=== PATIENT | female | born 1960 | race American Indian/Alaskan Native ===

== ENCOUNTER 2017-08-02 18:07 | Inpatient (IN) | payer OTHER ==
[2017-08-02] MEDS ORDERED: Famotidine 20mg/50ml Premix IVPB STA (18:58)
[2017-08-02 19:12] LABS: PH,URINE 6.5 (4.7-8.0); URINE BILIRUBIN NEGATIVE (NEGATIVE); URINE BLOOD MODERATE (NEGATIVE); URINE GLUCOSE (UA) >=1000 mg/dL (NEGATIVE); URINE LEUKOCYTE ESTERASE NEGATIVE Leu/uL (NEGATIVE); URINE PROTEIN 30 mg/dL (<30 mg/dL); URINE UROBILINOGEN 0.2 E.U./dL (<1 E.U./dL)
[2017-08-02 19:33] LABS: URINE APPEARANCE CLEAR (CLEAR)
[2017-08-02 19:43] LABS: URINE BACTERIA TRACE (NEG); URINE RBC 25 - 30 /hpf (0-2)
[2017-08-02 19:49] LABS: BASO # 0.02 K/mm3 (0.0-2.0); BASO % 0.3 % (0.0-3.0); EOS % 0.1 % (1.5-5.0); GRAN # 4.62 (1.4-6.5); HEMOGLOBIN 14.3 g/dL (12.0-16.0); LYMPH # 2.6 (1.2-3.4); LYMPH % 33.3 % (22.0-35.0); MEAN CELL VOLUME 89.2 fl (80.0-105.0); MEAN CORPUSCULAR HEMOGLOBIN 31.5 pg (25.0-35.0); MEAN CORPUSCULAR HGB CONC 35.3 g/dl (31.0-37.0); MEAN PLATELET VOLUME 11.2 fl (7.0-11.0); MONO # 0.6 (0.1-0.6); MONO % 7.3 % (1.0-6.0); RBC 4.54 10^6/uL (3.5-6.1); RED CELL DISTRIBUTION WIDTH 12.9 % (11.5-14.5); WHITE BLOOD COUNT 7.8 10^3/ul (4.5-11.0)
[2017-08-02] MEDS ORDERED: Sodium Chloride 0.9% 1,000 ML IV STA ×2 (19:52→20:46)
[2017-08-02 20:09] LABS: TROPONIN I 0.07 ng/mL
[2017-08-02 20:31] LABS: ALB/GLOB RATIO 0.8 (1.1-1.8); ALBUMIN 4.8 g/dL (3.0-4.8); ALT/SGPT 54 U/L (7-56); AMYLASE 95 U/L (35-125); AST/SGOT 71 U/L (14-36); BLOOD UREA NITROGEN 27 mg/dL (7-21); CALCIUM 10.9 mg/dL (8.4-10.5); GFR AFRICAN-AMERICAN > 60; GFR NON-AFRICAN AMERICAN 51; LIPASE 162 U/L (23-300)
[2017-08-02] MEDS ORDERED: Insulin Regular 1 UNITS/0.01 ML ML IVP STA (20:37)
[2017-08-02 20:39] LABS: CK MB% 5.1 % (2.5-3.0); CK-MB 19.7 ng/mL (0.0-3.6)
--- NOTE | 2017-08-02 20:52 | ED PDOC ---
Arrival/HPI - General Chief Complaint: Flu-like Symptoms Time Seen by Provider: 08/02/17 18:29 Historian: Patient - History of Present Illness Narrative History of Present Illness (Text): 08/02/17 20:49 56yo female with PMHx of hypertension who present with 11days history of generalized bodyache, decreased appetite, sharp abdominal pain, polydipsia/ uria. States she saw her PMD but nothing was done. She denies nausea, vomiting, diarrhea, constipation, fever, chills, chest pain, SOB, diaphoresis, focal weakness, any other complaint. Past Medical History - Provider Review Nursing Documentation Reviewed: Yes - Infectious Disease Hx of Infectious Diseases: None - Reproductive Menopause: Yes - Cardiac Hx Hypertension: Yes - Pulmonary Hx Asthma: Yes - Musculoskeletal/Rheumatological Other/Comment: chronic neck pain - Psychiatric Hx Anxiety: Yes Hx Depression: Yes Hx Substance Use: No Family/Social History - Physician Review Nursing Documentation Reviewed: Yes Family/Social History: Unknown Family HX Smoking Status: Current Some Days Smoker Hx Alcohol Use: No Hx Substance Use: No Allergies/Home Meds Allergies/Adverse Reactions: Allergies No Known Allergies Allergy (Verified 08/02/17 18:57) Review of Systems - Physician Review All systems were reviewed & negative as marked: Yes - Review of Systems Constitutional: Fatigue Eyes: Normal ENT: Normal Respiratory: Normal Cardiovascular: Normal Gastrointestinal: Abdominal Pain, Appetite Changes (decreased appetite). absent : Constipation, Diarrhea, Nausea, Vomiting Genitourinary Female: Normal Musculoskeletal: Normal Skin: Normal Neurological: Normal Endocrine: Normal Hemo/Lymphatic: Normal Psychiatric: Normal Physical Exam Vital Signs Reviewed: Yes Vital Signs Temp Pulse Resp BP Pulse Ox 08/03/17 00:56 98.2 F 82 18 173/98 H 08/02/17 23:43 98.1 F 85 18 123/69 100 08/02/17 21:02 98.1 F 92 H 18 194/86 H 96 08/02/17 18:08 98.6 F 113 H 18 163/101 H 96 Temperature: Afebrile Blood Pressure: Hypertensive Pulse: Tachycardic Respiratory Rate: Normal Appearance: Positive for: Well-Appearing, Non-Toxic, Comfortable Pain Distress: None Mental Status: Positive for: Alert and Oriented X 3 - Systems Exam Head: Present: Atraumatic, Normocephalic Pupils: Present: PERRL Extroacular Muscles: Present: EOMI Conjunctiva: Present: Normal Mouth: Present: Moist Mucous Membranes Neck: Present: Normal Range of Motion Respiratory/Chest: Present: Clear to Auscultation, Good Air Exchange. No: Respiratory Distress, Accessory Muscle Use Cardiovascular: Present: Regular Rate and Rhythm, Normal S1, S2. No: Murmurs Abdomen: Present: Tenderness (diffuse), Other (Soft). No: Distention, Peritoneal Signs, Rebound, Guarding, McBurney's Point Tender, Rovsing's Sign Present Back: Present: Normal Inspection Upper Extremity: Present: Normal Inspection. No: Cyanosis, Edema Lower Extremity: Present: Normal Inspection. No: Edema Neurological: Present: GCS=15, CN II-XII Intact, Speech Normal Skin: Present: Warm, Dry, Normal Color. No: Rashes Psychiatric: Present: Alert, Oriented x 3, Normal Insight, Normal Concentration Medical Decision Making ED Course and Treatment: 08/03/17 01:20 Pt present to ED for stated history. She was noted to be in DKA with AG and hyperglycemia. Pt denies history of Diabetes, so she have new onset DM. Insulin bolus, 2 Litres of NS was given EKG NSR with LVH and prolonged QT @ 82bpm Case was DW Dr. Encinas and he accepted pt for admission to the unit. - Lab Interpretations Lab Results: 08/02/17 19:20 08/02/17 19:20 Lab Results 08/02/17 19:20: Sodium 130 L, Potassium 4.8, Chloride 92 L, Carbon Dioxide 12 L , Anion Gap 31 H, BUN 27 H, Creatinine 1.1, Est GFR ( Amer) > 60, Est GFR (Non-Af Amer) 51, Random Glucose 884 H*, Calcium 10.9 H, Total Bilirubin 0.9 , AST 71 H, ALT 54, Alkaline Phosphatase 146 H, Lactate Dehydrogenase 666, Total Creatine Kinase 383 H, CK-MB (CK-2) 19.7 H, CK-MB (CK-2) % 5.1 H, Troponin I 0.07, Total Protein 10.9 H, Albumin 4.8, Globulin 6.1, Albumin/ Globulin Ratio 0.8 L, Amylase 95, Lipase 162 08/02/17 19:20: PT 13.5 H, INR 1.18 H, APTT 26.9 08/02/17 19:20: WBC 7.8, RBC 4.54, Hgb 14.3, Hct 40.5, MCV 89.2, MCH 31.5, MCHC 35.3, RDW 12.9, Plt Count 216, MPV 11.2 H, Gran % 59.0, Lymph % (Auto) 33.3, [place] % (Auto) 7.3 H, Eos % (Auto) 0.1 L, Baso % (Auto) 0.3, Gran # 4.62, Lymph # (Auto) 2.6, [place] # (Auto) 0.6, Eos # (Auto) 0.0, Baso # (Auto) 0.02 08/02/17 19:07: Urine Color yellow, Urine Appearance Clear, Urine pH 6.5, Ur Specific [place] 1.010, Urine Protein 30 H, Urine Glucose (UA) >=1000, Urine Ketones 40 H, Urine Blood Moderate H, Urine Nitrate Negative, Urine Bilirubin Negative, Urine Urobilinogen 0.2, Ur Leukocyte Esterase Negative, Urine RBC 25 - 30, Urine WBC 1 - 3, Ur Epithelial Cells 4 - 5, Urine Bacteria Trace - Medication Orders Current Medication Orders: Heparin Sodium (Porcine) (Heparin) 5,000 units SC Q8 SANTI PRN Reason: Protocol Hydralazine HCl (Apresoline) 10 mg IVP Q6 PRN PRN Reason: Other Insulin Human Regular 100 (units/ Sodium Chloride) 100 mls @ 3 mls/hr IV .Q24H PRN; Protocol; 3 UNITS/HR PRN Reason: TITRATE PER MD ORDER Last Titration: 08/03/17 01:15 Dose: 7 units/hr, 7 mls/hr Titration Intervention Document 08/03/17 01:15 PD (Rec: 08/03/17 01:16 PD [facility]) Titration Intake Titration Intake 10 Cumulative Intake 10 Cumulative Intake (Rx) 10 Waste Amount 0 Container Volume 90 Titration Dosing Titration Dose 7 IV Rate 7 Intake/Decrease Increased Cumulative Dose 10 Sodium Chloride (Sodium Chloride 0.9%) 1,000 mls @ 150 mls/hr IV .Q6H40M ONE Stop: 08/03/17 04:25 Last Admin: 08/02/17 21:58 Dose: 150 mls/hr eMAR Start Stop Document 08/02/17 21:58 OCS (Rec: 08/02/17 21:58 OCS [id number]) Intravenous Solution Start Date 08/02/17 Start Time 21:58 Pantoprazole Sodium (Protonix Inj) 40 mg IVP DAILY SANTI Discontinued Medications Famotidine (Pepcid 20mg/50ml Premix) 20 mg IVPB STAT STA Stop: 08/02/17 18:59 Last Admin: 08/02/17 19:24 Dose: 20 mg eMAR Start Stop Document 08/02/17 19:24 OCS (Rec: 08/02/17 19:24 OCS [id number]) Intravenous Solution Start Date 08/02/17 Start Time 19:24 End Date 08/02/17 End time 19:39 Total Infusion Time 15 Sodium Chloride (Sodium Chloride 0.9%) 1,000 mls @ 999 mls/hr IV .Q1H1M STA Stop: 08/02/17 20:52 Last Admin: 08/02/17 20:06 Dose: 999 mls/hr eMAR Start Stop Document 08/02/17 20:06 OCS (Rec: 08/02/17 20:06 OCS [id number]) Intravenous Solution Start Date 08/02/17 Start Time 20:06 End Date 08/02/17 End time 21:07 Total Infusion Time 61 Sodium Chloride (Sodium Chloride 0.9%) 1,000 mls @ 999 mls/hr IV .Q1H1M STA Stop: 08/02/17 21:46 Last Admin: 08/02/17 21:00 Dose: 999 mls/hr eMAR Start Stop Document 08/02/17 21:00 OCS (Rec: 08/02/17 21:01 OCS [id number]) Intravenous Solution Start Date 08/02/17 Start Time 21:00 End Date 08/02/17 End time 22:01 Total Infusion Time 61 Insulin Human Regular (Humulin R) 15 units IVP ONCE STA Stop: 08/02/17 20:38 Last Admin: 08/02/17 21:00 Dose: 15 units MAR Blood Glucose Document 08/02/17 21:00 OCS (Rec: 08/02/17 21:00 OCS [id number]) Blood Glucose Finger Stick Blood Glucose (70-120) 500 IVP Administration Document 08/02/17 21:00 OCS (Rec: 08/02/17 21:00 OCS [id number]) Charges for Administration # of IVP Administrations 1 Ketorolac Tromethamine (Toradol) 30 mg IVP STAT STA Stop: 08/02/17 18:59 Last Admin: 08/02/17 19:24 Dose: 30 mg MAR Pain Assessment Document 08/02/17 19:24 OCS (Rec: 08/02/17 19:25 OCS [id number]) Pain Reassessment Is this a pain reassessment? Yes Sleep Is patient sleeping during reassessment? No Presence of Pain Presence of Pain Yes Pain Scale Used Pain Scale Used Numeric Location Left, Right or Bilateral Bilateral Pain Location Body Site Abdomen Description Description Intermittent Intensity of Pain at present 10 Pain Behavior Moaning Irritability Restlessness Facial Grimacing Aggravating Factors ADL's IVP Administration Document 08/02/17 19:24 OCS (Rec: 08/02/17 19:25 OCS [id number]) Charges for Administration # of IVP Administrations 1 Disposition/Present on Arrival - Present on Arrival Any Indicators Present on Arrival: No History of DVT/PE: No History of Uncontrolled Diabetes: No Urinary Catheter: No History of Decub. Ulcer: No History Surgical Site Infection Following: None - Disposition Have Diagnosis and Disposition been Completed?: Yes Diagnosis: DKA (diabetic ketoacidoses), New onset type 2 diabetes mellitus Disposition: HOSPITALIZED Disposition Time: 20:45 Patient Plan: Admission Patient Problems: Current Active Problems Problem Status Onset DKA (diabetic ketoacidoses) Acute New onset type 2 diabetes mellitus Acute Condition: FAIR
[2017-08-02 20:59] LABS: INR 1.18 (0.93-1.08); PARTIAL THROMBOPLASTIN TIME 26.9 Seconds (25.1-36.5); PROTHROMBIN TIME 13.5 SECONDS (9.4-12.5)
[2017-08-02] MEDS ORDERED: Insulin Regular 100 UNITS in Sodium Chloride 0.9% 99 ML IV PRN (21:44)
[2017-08-02] MEDS ORDERED: Sodium Chloride 0.9% 1,000 ML IV ONE (21:46)
--- NOTE | 2017-08-02 22:11 | CP.PCM.HP ---
<Jeffery Raphael - Last Filed: 08/02/17 22:35> History of Present Illness - History of Present Illness History of Present Illness: CC: Abdominal pain 56 F with PMHx of HTN presents to the ED with abdominal pain, decrease appetite , and polydipsia. Patient states that for the past 11 days she has been feeling progressively tired. Than she started to develop some generalized abdominal pain following meals that is 10/10 in severity therefore loosing her appetite. Patient also states that she has been feeling very thirsty recently and urinating often. She states that she goes to her PMD monthly and has been relatively healthy. She denies this ever occurring before. No other complaints. 12 Point ROS performed and neg other than stated above. PMH: HYN PSHx: Denies Med: refer to MAR ALL: NKA SH: admits to snorting cocaine occasionally, Drinks 1 cup of wine during the night, Smokes 1/2 PPD >20 years Present on Admission - Present on Admission Any Indicators Present on Admission: No Review of Systems - Review of Systems All systems: reviewed and no additional remarkable complaints except (HPI) Past Patient History - Infectious Disease Hx of Infectious Diseases: None - Past Social History Smoking Status: Current Some Days Smoker - CARDIAC Hx Hypertension: Yes - PULMONARY Hx Asthma: Yes - MUSCULOSKELETAL/RHEUMATOLOGICAL Other/Comment: chronic neck pain - PSYCHIATRIC Hx Anxiety: Yes Hx Depression: Yes Hx Substance Use: No Meds Allergies/Adverse Reactions: Allergies Allergy/AdvReac Type Severity Reaction Status Date / Time No Known Allergies Allergy Verified 08/02/17 18:57 Physical Exam - Constitutional Appears: No Acute Distress - Head Exam Head Exam: ATRAUMATIC, NORMOCEPHALIC - Eye Exam Eye Exam: EOMI, PERRL Pupil Exam: NORMAL ACCOMODATION - ENT Exam ENT Exam: Mucous Membranes Moist - Neck Exam Neck exam: Positive for: Full Rom - Respiratory Exam Respiratory Exam: Clear to Auscultation Bilateral, NORMAL BREATHING PATTERN. absent: Rales, Rhonchi, Wheezes - Cardiovascular Exam Cardiovascular Exam: REGULAR RHYTHM, RRR, +S1, +S2 - GI/Abdominal Exam GI & Abdominal Exam: Normal Bowel Sounds, Soft. absent: Distended, Tenderness - Extremities Exam Extremities exam: Positive for: normal inspection - Neurological Exam Neurological exam: Alert, CN II-XII Intact, Oriented x3 - Psychiatric Exam Psychiatric exam: Normal Mood - Skin Skin Exam: Dry, Warm Results - Vital Signs Recent Vital Signs: Last Vital Signs Temp 98.1 F 08/02/17 21:02 Pulse 92 H 08/02/17 21:02 Resp 18 08/02/17 21:02 BP 194/86 H 08/02/17 21:02 Pulse Ox 96 08/02/17 21:02 - Labs Result Diagrams: 08/02/17 19:20 08/02/17 19:20 Assessment & Plan - Assessment and Plan (Free Text) Assessment: 56 F with PMHx of HTN presents to the ED with abdominal pain, decrease appetite , and polydipsia found to be in DKA. 1. DKA - Anion Gap of 26 - Insulin ggt as protocol - Finger sticks Q1H - CMP Q4H - NS @ 150 ; s/p 2 NS bolus - Serial troponin Q4H ; trop x 1 is 0.07 - CXR reviewed - F/u septic work up - Morning labs - F/u TSH, Hba1c, Lipid panel 2. HTN - Hydralazine 10 mg Q6H PRN - Maintain systolic <160/100 - Cont to monitor 3. GI/DVT ppx -Protonix and HSQ Case and plan was reviewed and discussed in detail with Dr Encinas. <Deondre Encinas - Last Filed: 08/03/17 04:59> Results - Vital Signs Recent Vital Signs: Last Vital Signs Temp 98.2 F 08/03/17 00:56 Pulse 80 08/03/17 02:00 Resp 18 08/03/17 00:56 BP 173/98 H 08/03/17 00:56 Pulse Ox 100 08/02/17 23:43 - Labs Result Diagrams: 08/02/17 19:20 08/03/17 01:30 Labs: Laboratory Results - last 24 hr 08/03/17 08/03/17 08/03/17 00:42 01:30 01:30 Sodium 139 Potassium 3.4 L Chloride 103 Carbon Dioxide 20 L Anion Gap 20 BUN 26 H Creatinine 0.9 Est GFR ( Amer) > 60 Est GFR (Non-Af Amer) > 60 POC Glucose (mg/dL) 303 H Random Glucose 391 H* D Calcium 10.5 Total Bilirubin 0.8 AST 77 H ALT 49 Alkaline Phosphatase 114 Troponin I 0.11 D Total Protein 10.5 H Albumin 4.4 Globulin 6.0 Albumin/Globulin Ratio 0.7 L Triglycerides 275 H Cholesterol 197 LDL Cholesterol Direct 100 HDL Cholesterol 42 TSH 3rd Generation 1.45 08/03/17 08/03/17 08/03/17 01:55 03:04 04:23 Sodium Potassium Chloride Carbon Dioxide Anion Gap BUN Creatinine Est GFR ( Amer) Est GFR (Non-Af Amer) POC Glucose (mg/dL) 278 H 166 H 139 H Random Glucose Calcium Total Bilirubin AST ALT Alkaline Phosphatase Troponin I Total Protein Albumin Globulin Albumin/Globulin Ratio Triglycerides Cholesterol LDL Cholesterol Direct HDL Cholesterol TSH 3rd Generation Attending/Attestation - Attestation I have personally seen and examined this patient.: Yes I have fully participated in the care of the patient.: Yes I have reviewed all pertinent clinical information: Yes Notes (Text): 08/03/17 04:58 Patient was seen when she was in the CCU-01. Medical record was reviewed. Agree with history, physical examination, assessment and plan. CCT spent:30 Minutes.
[2017-08-03 01:13] VITALS: BMI 22.6
[2017-08-03 02:40] LABS: LDL CHOLESTEROL 100 mg/dL (0-129); TROPONIN I 0.11 ng/mL
[2017-08-03 02:52] LABS: ALB/GLOB RATIO 0.7 (1.1-1.8); ALBUMIN 4.4 g/dL (3.0-4.8); ALT/SGPT 49 U/L (7-56); AST/SGOT 77 U/L (14-36); BLOOD UREA NITROGEN 26 mg/dL (7-21); CALCIUM 10.5 mg/dL (8.4-10.5); GFR AFRICAN-AMERICAN > 60; GFR NON-AFRICAN AMERICAN > 60; HDL CHOLESTEROL 42 mg/dL (29-60)
[2017-08-03] MEDS ORDERED: Potassium Chloride 40 mEq/30 ml LIQ UD PO STA (06:19)
[2017-08-03 07:11] LABS: BASO # 0.01 K/mm3 (0.0-2.0); BASO % 0.1 % (0.0-3.0); EOS # 0.1 (0.0-0.7); EOS % 0.8 % (1.5-5.0); GRAN # 2.26 (1.4-6.5); HEMOGLOBIN 12.6 g/dL (12.0-16.0); LYMPH # 4.2 (1.2-3.4); LYMPH % 57.1 % (22.0-35.0); MEAN CELL VOLUME 86.7 fl (80.0-105.0); MEAN CORPUSCULAR HEMOGLOBIN 30.6 pg (25.0-35.0); MEAN CORPUSCULAR HGB CONC 35.3 g/dl (31.0-37.0); MEAN PLATELET VOLUME 10.5 fl (7.0-11.0); MONO # 0.8 (0.1-0.6); RBC 4.12 10^6/uL (3.5-6.1); RED CELL DISTRIBUTION WIDTH 12.7 % (11.5-14.5); WHITE BLOOD COUNT 7.3 10^3/ul (4.5-11.0)
[2017-08-03 07:29] LABS: TROPONIN I 0.12 ng/mL
[2017-08-03 07:30] LABS: ALB/GLOB RATIO 0.8 (1.1-1.8); ALT/SGPT 47 U/L (7-56); AST/SGOT 76 U/L (14-36); BLOOD UREA NITROGEN 24 mg/dL (7-21); CALCIUM 9.9 mg/dL (8.4-10.5); GFR AFRICAN-AMERICAN > 60; GFR NON-AFRICAN AMERICAN > 60
[2017-08-03] MEDS ORDERED: Potassium Chloride 20 mEq ER Tab PO STA ×2 (08:49→09:09)
[2017-08-03] MEDS ORDERED: Dextrose 5%/0.45% NS 1,000 ML IV SCH (09:00)
--- NOTE | 2017-08-03 09:00 | RAD ---
HISTORY: Admission. COMPARISON: No prior. FINDINGS: LUNGS: No active pulmonary disease. PLEURA: No significant pleural effusion identified, no pneumothorax apparent. CARDIOVASCULAR: No radiographic findings to suggest acute or significant cardiovascular disease. OSSEOUS STRUCTURES: No significant abnormalities. VISUALIZED UPPER ABDOMEN: Normal. OTHER FINDINGS: None. IMPRESSION: No active disease.
[2017-08-03] MEDS ORDERED: Insulin Detemir 100 units/ml Vial (Levemir) SC STA (09:06)
--- NOTE | 2017-08-03 09:17 | CP.CCUPN ---
<Virgen Sofia - Last Filed: 08/03/17 13:46> CCU Subjective - Physician Review Subjective (Free Text): 08/03/17 12:34 Patient seen and examined at bedside. No acute events overnight. Denies fever, chills, nausea, vomiting, abdominal pain, polyuria, polydipsia. Critical Care Time Spent (in minutes): 45 CCU Objective - Vital Signs / Intake & Output Vital Signs (Last 4 hours): Vital Signs Temp Pulse Resp BP Pulse Ox 08/03/17 08:00 98.6 F 82 20 153/96 H 98 08/03/17 07:50 81 16 99 08/03/17 07:40 81 18 100 08/03/17 07:30 83 19 99 08/03/17 07:20 78 59 H 89 L 08/03/17 07:10 80 18 100 08/03/17 07:00 75 17 146/72 99 08/03/17 06:50 78 21 100 08/03/17 06:40 71 18 100 08/03/17 06:30 76 17 100 08/03/17 06:20 90 98 08/03/17 06:10 90 100 08/03/17 06:04 79 21 162/84 H 99 08/03/17 06:00 77 20 99 08/03/17 05:50 72 12 98 08/03/17 05:40 73 11 L 98 08/03/17 05:30 72 12 99 08/03/17 05:20 75 12 98 Intake and Output (Last 8hrs): Intake & Output 08/02/17 08/03/17 08/03/17 22:59 06:59 14:59 Intake Total 40 7.5 Balance 40 7.5 Weight 136 lb 6.4 oz Intake: IV 40 7.5 - Physical Exam Head: Positive for: Atraumatic, Normocephalic Pupils: Positive for: PERRL Extroacular Muscles: Positive for: EOMI Conjunctiva: Positive for: Normal Mouth: Positive for: Moist Mucous Membranes Neck: Positive for: Normal Range of Motion Respiratory/Chest: Positive for: Clear to Auscultation, Good Air Exchange. Negative for: Respiratory Distress, Accessory Muscle Use Cardiovascular: Positive for: Regular Rate and Rhythm, Normal S1, S2. Negative for: Murmurs Abdomen: Positive for: Normal Bowel Sounds. Negative for: Distention, Peritoneal Signs, Rebound, Guarding, McBurney's Point Tender, Rovsing's Sign Present, Mass/Organomegaly Back: Positive for: Normal Inspection Upper Extremity: Positive for: Normal Inspection. Negative for: Cyanosis, Edema Lower Extremity: Positive for: Normal Inspection. Negative for: Edema Neurological: Positive for: GCS=15, CN II-XII Intact, Speech Normal Skin: Positive for: Warm, Dry, Normal Color. Negative for: Rashes Psychiatric: Positive for: Alert, Oriented x 3, Normal Insight, Normal Concentration - Medications Active Medications: Active Medications Generic Name Dose Route Start Last Admin Trade Name Freq PRN Reason Stop Dose Admin Atorvastatin Calcium 40 mg 08/03/17 17:00 Lipitor PO DIN SANTI Heparin Sodium (Porcine) 5,000 units 08/03/17 06:00 08/03/17 06:08 Heparin SC 5,000 units Q8 SANTI Administration Protocol Hydralazine HCl 10 mg 08/02/17 22:20 Apresoline IVP Q6 PRN Other Insulin Human Regular 100 100 mls @ 3 mls/hr 08/02/17 21:44 08/03/17 08:18 units/ Sodium Chloride IV 1.5 units/hr .Q24H PRN 1.5 mls/hr TITRATE PER MD ORDER Titration Protocol 3 UNITS/HR Potassium Chloride 20 meq in 100 mls @ 50 mls/hr 08/03/17 06:30 08/03/17 07: 00 Potassium Chloride 20 Meq/100 Ml IVPB 08/03/17 10:29 50 mls/hr Q2H SANTI Administration Dextrose/Sodium Chloride 1,000 mls @ 150 mls/hr 08/03/17 09:00 08/03/17 09:12 Dextrose 5%/0.45% Ns 1000 Ml IV 150 mls/hr .Q6H40M SANTI Administration Pantoprazole Sodium 40 mg 08/03/17 10:00 08/03/17 09:08 Protonix Inj IVP 40 mg DAILY SANTI Administration - Patient Studies Lab Studies: Lab Studies 08/03/17 08/03/17 08/03/17 Range/Units 08:17 07:20 06:30 WBC (4.5-11.0) 10^3/ul RBC (3.5-6.1) 10^6/uL Hgb (12.0-16.0) g/dL Hct (36.0-48.0) % MCV (80.0-105.0) fl MCH (25.0-35.0) pg MCHC (31.0-37.0) g/dl RDW (11.5-14.5) % Plt Count (120.0-450.0) 10^3/uL MPV (7.0-11.0) fl Gran % (50.0-68.0) % Lymph % (Auto) (22.0-35.0) % Sutton % (Auto) (1.0-6.0) % Eos % (Auto) (1.5-5.0) % Baso % (Auto) (0.0-3.0) % Gran # (1.4-6.5) Lymph # (Auto) (1.2-3.4) Sutton # (Auto) (0.1-0.6) Eos # (Auto) (0.0-0.7) Baso # (Auto) (0.0-2.0) K/mm3 Sodium 142 (132-148) mmol/L Potassium 3.5 L (3.6-5.0) mmol/L Chloride 110 H (98-107) mmol/L Carbon Dioxide 22 (21-33) mmol/L Anion Gap 14 (10-20) BUN 24 H (7-21) mg/dL Creatinine 0.8 (0.7-1.2) mg/dl Est GFR ( Amer) > 60 Est GFR (Non-Af Amer) > 60 POC Glucose (mg/dL) 130 H 210 H (65-110) mg/dL Random Glucose 138 H (70-110) mg/dL Calcium 9.9 (8.4-10.5) mg/dL Total Bilirubin 0.7 (0.2-1.3) mg/dL AST 76 H (14-36) U/L ALT 47 (7-56) U/L Alkaline Phosphatase 79 (38-126) U/L Troponin I 0.12 ng/mL Total Protein 9.1 H (5.8-8.3) g/dL Albumin 4.0 (3.0-4.8) g/dL Globulin 5.1 gm/dL Albumin/Globulin Ratio 0.8 L (1.1-1.8) Triglycerides (35-160) mg/dL Cholesterol (130-200) mg/dL LDL Cholesterol Direct (0-129) mg/dL HDL Cholesterol (29-60) mg/dL TSH 3rd Generation (0.46-4.68) mIU/mL 08/03/17 08/03/17 08/03/17 Range/Units 06:30 06:02 04:23 WBC 7.3 (4.5-11.0) 10^3/ul RBC 4.12 (3.5-6.1) 10^6/uL Hgb 12.6 (12.0-16.0) g/dL Hct 35.7 L (36.0-48.0) % MCV 86.7 (80.0-105.0) fl MCH 30.6 (25.0-35.0) pg MCHC 35.3 (31.0-37.0) g/dl RDW 12.7 (11.5-14.5) % Plt Count 190 (120.0-450.0) 10^3/uL MPV 10.5 (7.0-11.0) fl Gran % 31.0 L (50.0-68.0) % Lymph % (Auto) 57.1 H (22.0-35.0) % Sutton % (Auto) 11.0 H (1.0-6.0) % Eos % (Auto) 0.8 L (1.5-5.0) % Baso % (Auto) 0.1 (0.0-3.0) % Gran # 2.26 (1.4-6.5) Lymph # (Auto) 4.2 H (1.2-3.4) Sutton # (Auto) 0.8 H (0.1-0.6) Eos # (Auto) 0.1 (0.0-0.7) Baso # (Auto) 0.01 (0.0-2.0) K/mm3 Sodium (132-148) mmol/L Potassium (3.6-5.0) mmol/L Chloride (98-107) mmol/L Carbon Dioxide (21-33) mmol/L Anion Gap (10-20) BUN (7-21) mg/dL Creatinine (0.7-1.2) mg/dl Est GFR ( Amer) Est GFR (Non-Af Amer) POC Glucose (mg/dL) 127 H 139 H (65-110) mg/dL Random Glucose (70-110) mg/dL Calcium (8.4-10.5) mg/dL Total Bilirubin (0.2-1.3) mg/dL AST (14-36) U/L ALT (7-56) U/L Alkaline Phosphatase (38-126) U/L Troponin I ng/mL Total Protein (5.8-8.3) g/dL Albumin (3.0-4.8) g/dL Globulin gm/dL Albumin/Globulin Ratio (1.1-1.8) Triglycerides (35-160) mg/dL Cholesterol (130-200) mg/dL LDL Cholesterol Direct (0-129) mg/dL HDL Cholesterol (29-60) mg/dL TSH 3rd Generation (0.46-4.68) mIU/mL 08/03/17 08/03/17 08/03/17 Range/Units 03:04 01:55 01:30 WBC (4.5-11.0) 10^3/ul RBC (3.5-6.1) 10^6/uL Hgb (12.0-16.0) g/dL Hct (36.0-48.0) % MCV (80.0-105.0) fl MCH (25.0-35.0) pg MCHC (31.0-37.0) g/dl RDW (11.5-14.5) % Plt Count (120.0-450.0) 10^3/uL MPV (7.0-11.0) fl Gran % (50.0-68.0) % Lymph % (Auto) (22.0-35.0) % Sutton % (Auto) (1.0-6.0) % Eos % (Auto) (1.5-5.0) % Baso % (Auto) (0.0-3.0) % Gran # (1.4-6.5) Lymph # (Auto) (1.2-3.4) Sutton # (Auto) (0.1-0.6) Eos # (Auto) (0.0-0.7) Baso # (Auto) (0.0-2.0) K/mm3 Sodium (132-148) mmol/L Potassium (3.6-5.0) mmol/L Chloride (98-107) mmol/L Carbon Dioxide (21-33) mmol/L Anion Gap (10-20) BUN (7-21) mg/dL Creatinine (0.7-1.2) mg/dl Est GFR ( Amer) Est GFR (Non-Af Amer) POC Glucose (mg/dL) 166 H 278 H (65-110) mg/dL Random Glucose (70-110) mg/dL Calcium (8.4-10.5) mg/dL Total Bilirubin (0.2-1.3) mg/dL AST (14-36) U/L ALT (7-56) U/L Alkaline Phosphatase (38-126) U/L Troponin I ng/mL Total Protein (5.8-8.3) g/dL Albumin (3.0-4.8) g/dL Globulin gm/dL Albumin/Globulin Ratio (1.1-1.8) Triglycerides (35-160) mg/dL Cholesterol (130-200) mg/dL LDL Cholesterol Direct (0-129) mg/dL HDL Cholesterol (29-60) mg/dL TSH 3rd Generation 1.45 (0.46-4.68) mIU/mL 08/03/17 08/03/17 Range/Units 01:30 00:42 WBC (4.5-11.0) 10^3/ul RBC (3.5-6.1) 10^6/uL Hgb (12.0-16.0) g/dL Hct (36.0-48.0) % MCV (80.0-105.0) fl MCH (25.0-35.0) pg MCHC (31.0-37.0) g/dl RDW (11.5-14.5) % Plt Count (120.0-450.0) 10^3/uL MPV (7.0-11.0) fl Gran % (50.0-68.0) % Lymph % (Auto) (22.0-35.0) % Sutton % (Auto) (1.0-6.0) % Eos % (Auto) (1.5-5.0) % Baso % (Auto) (0.0-3.0) % Gran # (1.4-6.5) Lymph # (Auto) (1.2-3.4) Sutton # (Auto) (0.1-0.6) Eos # (Auto) (0.0-0.7) Baso # (Auto) (0.0-2.0) K/mm3 Sodium 139 (132-148) mmol/L Potassium 3.4 L (3.6-5.0) mmol/L Chloride 103 (98-107) mmol/L Carbon Dioxide 20 L (21-33) mmol/L Anion Gap 20 (10-20) BUN 26 H (7-21) mg/dL Creatinine 0.9 (0.7-1.2) mg/dl Est GFR ( Amer) > 60 Est GFR (Non-Af Amer) > 60 POC Glucose (mg/dL) 303 H (65-110) mg/dL Random Glucose 391 H* D (70-110) mg/dL Calcium 10.5 (8.4-10.5) mg/dL Total Bilirubin 0.8 (0.2-1.3) mg/dL AST 77 H (14-36) U/L ALT 49 (7-56) U/L Alkaline Phosphatase 114 (38-126) U/L Troponin I 0.11 D ng/mL Total Protein 10.5 H (5.8-8.3) g/dL Albumin 4.4 (3.0-4.8) g/dL Globulin 6.0 gm/dL Albumin/Globulin Ratio 0.7 L (1.1-1.8) Triglycerides 275 H (35-160) mg/dL Cholesterol 197 (130-200) mg/dL LDL Cholesterol Direct 100 (0-129) mg/dL HDL Cholesterol 42 (29-60) mg/dL TSH 3rd Generation (0.46-4.68) mIU/mL Laboratory Results - last 24 hr 08/03/17 08/03/17 08/03/17 00:42 01:30 01:30 WBC RBC Hgb Hct MCV MCH MCHC RDW Plt Count MPV Gran % Lymph % (Auto) Sutton % (Auto) Eos % (Auto) Baso % (Auto) Gran # Lymph # (Auto) Sutton # (Auto) Eos # (Auto) Baso # (Auto) Sodium 139 Potassium 3.4 L Chloride 103 Carbon Dioxide 20 L Anion Gap 20 BUN 26 H Creatinine 0.9 Est GFR ( Amer) > 60 Est GFR (Non-Af Amer) > 60 POC Glucose (mg/dL) 303 H Random Glucose 391 H* D Calcium 10.5 Total Bilirubin 0.8 AST 77 H ALT 49 Alkaline Phosphatase 114 Troponin I 0.11 D Total Protein 10.5 H Albumin 4.4 Globulin 6.0 Albumin/Globulin Ratio 0.7 L Triglycerides 275 H Cholesterol 197 LDL Cholesterol Direct 100 HDL Cholesterol 42 TSH 3rd Generation 1.45 08/03/17 08/03/17 08/03/17 01:55 03:04 04:23 WBC RBC Hgb Hct MCV MCH MCHC RDW Plt Count MPV Gran % Lymph % (Auto) Sutton % (Auto) Eos % (Auto) Baso % (Auto) Gran # Lymph # (Auto) Sutton # (Auto) Eos # (Auto) Baso # (Auto) Sodium Potassium Chloride Carbon Dioxide Anion Gap BUN Creatinine Est GFR ( Amer) Est GFR (Non-Af Amer) POC Glucose (mg/dL) 278 H 166 H 139 H Random Glucose Calcium Total Bilirubin AST ALT Alkaline Phosphatase Troponin I Total Protein Albumin Globulin Albumin/Globulin Ratio Triglycerides Cholesterol LDL Cholesterol Direct HDL Cholesterol TSH 3rd Generation 08/03/17 08/03/17 08/03/17 06:02 06:30 06:30 WBC 7.3 RBC 4.12 Hgb 12.6 Hct 35.7 L MCV 86.7 MCH 30.6 MCHC 35.3 RDW 12.7 Plt Count 190 MPV 10.5 Gran % 31.0 L Lymph % (Auto) 57.1 H Sutton % (Auto) 11.0 H Eos % (Auto) 0.8 L Baso % (Auto) 0.1 Gran # 2.26 Lymph # (Auto) 4.2 H Sutton # (Auto) 0.8 H Eos # (Auto) 0.1 Baso # (Auto) 0.01 Sodium 142 Potassium 3.5 L Chloride 110 H Carbon Dioxide 22 Anion Gap 14 BUN 24 H Creatinine 0.8 Est GFR ( Amer) > 60 Est GFR (Non-Af Amer) > 60 POC Glucose (mg/dL) 127 H Random Glucose 138 H Calcium 9.9 Total Bilirubin 0.7 AST 76 H ALT 47 Alkaline Phosphatase 79 Troponin I 0.12 Total Protein 9.1 H Albumin 4.0 Globulin 5.1 Albumin/Globulin Ratio 0.8 L Triglycerides Cholesterol LDL Cholesterol Direct HDL Cholesterol TSH 3rd Generation 08/03/17 08/03/17 07:20 08:17 WBC RBC Hgb Hct MCV MCH MCHC RDW Plt Count MPV Gran % Lymph % (Auto) Sutton % (Auto) Eos % (Auto) Baso % (Auto) Gran # Lymph # (Auto) Sutton # (Auto) Eos # (Auto) Baso # (Auto) Sodium Potassium Chloride Carbon Dioxide Anion Gap BUN Creatinine Est GFR ( Amer) Est GFR (Non-Af Amer) POC Glucose (mg/dL) 210 H 130 H Random Glucose Calcium Total Bilirubin AST ALT Alkaline Phosphatase Troponin I Total Protein Albumin Globulin Albumin/Globulin Ratio Triglycerides Cholesterol LDL Cholesterol Direct HDL Cholesterol TSH 3rd Generation Fingerstick Blood Sugar Results: 130 Review of Systems - Review of Systems All systems: reviewed and no additional remarkable complaints except Review of Systems: as per subjective portion of note Critical Care Progress Note - Nutrition Nutrition: Nutrition Category Date Time Status Consistent Carbohydrate [DIET] Diets 08/03/17 Breakfast Ordered Assessment/Plan - Assessment and Plan (Free Text) Assessment: 56 F with PMHx of HTN, admitted to ICU for DKA management. Anion gap closed, given 31 units levemir sq and started on ISS high. Transferred to remote tele: Neuro: AAOx4 today. Cont to monitor. CV: Hx of HTN Lisinopril 20 mg PO daily. Hydralazine prn trops indeterminate, consider Cardio consult (as per primary team) - no prior stress test or cardiac cath Maintain MAP>65. Hemodynamically stable. Cont to monitor. Elevated LDL, started lipitor Pulm: On RA. Saturating well. Maintain O2 sat>90% GI: Carb consistent/heart healthy diet. Continue with Protonix. Renal : BUN/Cr stable. Hypokalemic, repleted. Maintain euvolemia. Continue to monitor. ID: Afebrile, no leukocytosis. procal low. Endo: ISS high q4 hours. Maintain euglycemia. HgbA1C 12 procal low Heme: Stable. Cont to monitor. Psych: Normal mood. DVT ppx - Heparin sq GI ppx - Protonix Case seen and discussed with Dr Mcdaniel. Virgen Sofia, PGY1 - Date & Time Date: 08/03/17 Time: 13:52 <Donald Mcdaniel - Last Filed: 08/03/17 14:52> CCU Objective - Vital Signs / Intake & Output Vital Signs (Last 4 hours): Vital Signs Pulse Resp BP Pulse Ox 08/03/17 12:10 87 19 100 08/03/17 12:03 90 13 100 08/03/17 11:50 77 21 100 08/03/17 11:40 95 H 100 08/03/17 11:30 100 H 100 08/03/17 11:20 84 24 100 08/03/17 11:10 83 23 100 08/03/17 11:00 85 21 137/74 100 08/03/17 10:50 84 19 100 Intake and Output (Last 8hrs): Intake & Output 08/02/17 08/03/17 08/03/17 22:59 06:59 14:59 Intake Total 40 13.5 Balance 40 13.5 Weight 136 lb 6.4 oz Intake: IV 40 13.5 - Medications Active Medications: Active Medications Generic Name Dose Route Start Last Admin Trade Name Freq PRN Reason Stop Dose Admin Atorvastatin Calcium 40 mg 08/03/17 17:00 Lipitor PO DIN [facility] Heparin Sodium (Porcine) 5,000 units 08/03/17 06:00 08/03/17 13:19 Heparin SC 5,000 units Q8 [facility] Administration Protocol Hydralazine HCl 10 mg 08/02/17 22:20 08/03/17 10:34 Apresoline IVP 10 mg Q6 PRN Administration Other Insulin Human Lispro 0 units 08/03/17 16:00 Humalog High SC Q4 [facility] Protocol Lisinopril 20 mg 08/04/17 10:00 Zestril PO DAILY SANTI Pantoprazole Sodium 40 mg 08/04/17 07:30 Protonix Ec Tab PO ACB [facility] - Patient Studies Lab Studies: Lab Studies 08/03/17 08/03/17 08/03/17 Range/Units 13:56 12:50 12:07 WBC (4.5-11.0) 10^3/ul RBC (3.5-6.1) 10^6/uL Hgb (12.0-16.0) g/dL Hct (36.0-48.0) % MCV (80.0-105.0) fl MCH (25.0-35.0) pg MCHC (31.0-37.0) g/dl RDW (11.5-14.5) % Plt Count (120.0-450.0) 10^3/uL MPV (7.0-11.0) fl Gran % (50.0-68.0) % Lymph % (Auto) (22.0-35.0) % Sutton % (Auto) (1.0-6.0) % Eos % (Auto) (1.5-5.0) % Baso % (Auto) (0.0-3.0) % Gran # (1.4-6.5) Lymph # (Auto) (1.2-3.4) Sutton # (Auto) (0.1-0.6) Eos # (Auto) (0.0-0.7) Baso # (Auto) (0.0-2.0) K/mm3 Sodium (132-148) mmol/L Potassium (3.6-5.0) mmol/L Chloride (98-107) mmol/L Carbon Dioxide (21-33) mmol/L Anion Gap (10-20) BUN (7-21) mg/dL Creatinine (0.7-1.2) mg/dl Est GFR ( Amer) Est GFR (Non-Af Amer) POC Glucose (mg/dL) 366 H 380 H 346 H (65-110) mg/dL Random Glucose (70-110) mg/dL Hemoglobin A1c (4.2-6.5) % Calcium (8.4-10.5) mg/dL Total Bilirubin (0.2-1.3) mg/dL AST (14-36) U/L ALT (7-56) U/L Alkaline Phosphatase (38-126) U/L Troponin I ng/mL Total Protein (5.8-8.3) g/dL Albumin (3.0-4.8) g/dL Globulin gm/dL Albumin/Globulin Ratio (1.1-1.8) Triglycerides (35-160) mg/dL Cholesterol (130-200) mg/dL LDL Cholesterol Direct (0-129) mg/dL HDL Cholesterol (29-60) mg/dL Procalcitonin (0.19-0.49) NG/ML TSH 3rd Generation (0.46-4.68) mIU/mL Urine Opiates Screen (NEGATIVE) Urine Methadone Screen (NEGATIVE) Ur Barbiturates Screen (NEGATIVE) Ur Phencyclidine Scrn (NEGATIVE) Ur Amphetamines Screen (NEGATIVE) U Benzodiazepines Scrn (NEGATIVE) U Oth Cocaine Metabols (NEGATIVE) U Cannabinoids Screen (NEGATIVE) 08/03/17 08/03/17 08/03/17 Range/Units 11:15 10:18 09:50 WBC (4.5-11.0) 10^3/ul RBC (3.5-6.1) 10^6/uL Hgb (12.0-16.0) g/dL Hct (36.0-48.0) % MCV (80.0-105.0) fl MCH (25.0-35.0) pg MCHC (31.0-37.0) g/dl RDW (11.5-14.5) % Plt Count (120.0-450.0) 10^3/uL MPV (7.0-11.0) fl Gran % (50.0-68.0) % Lymph % (Auto) (22.0-35.0) % Sutton % (Auto) (1.0-6.0) % Eos % (Auto) (1.5-5.0) % Baso % (Auto) (0.0-3.0) % Gran # (1.4-6.5) Lymph # (Auto) (1.2-3.4) Sutton # (Auto) (0.1-0.6) Eos # (Auto) (0.0-0.7) Baso # (Auto) (0.0-2.0) K/mm3 Sodium (132-148) mmol/L Potassium (3.6-5.0) mmol/L Chloride (98-107) mmol/L Carbon Dioxide (21-33) mmol/L Anion Gap (10-20) BUN (7-21) mg/dL Creatinine (0.7-1.2) mg/dl Est GFR ( Amer) Est GFR (Non-Af Amer) POC Glucose (mg/dL) 393 H 219 H (65-110) mg/dL Random Glucose (70-110) mg/dL Hemoglobin A1c (4.2-6.5) % Calcium (8.4-10.5) mg/dL Total Bilirubin (0.2-1.3) mg/dL AST (14-36) U/L ALT (7-56) U/L Alkaline Phosphatase (38-126) U/L Troponin I ng/mL Total Protein (5.8-8.3) g/dL Albumin (3.0-4.8) g/dL Globulin gm/dL Albumin/Globulin Ratio (1.1-1.8) Triglycerides (35-160) mg/dL Cholesterol (130-200) mg/dL LDL Cholesterol Direct (0-129) mg/dL HDL Cholesterol (29-60) mg/dL Procalcitonin (0.19-0.49) NG/ML TSH 3rd Generation (0.46-4.68) mIU/mL Urine Opiates Screen Negative (NEGATIVE) Urine Methadone Screen Negative (NEGATIVE) Ur Barbiturates Screen Negative (NEGATIVE) Ur Phencyclidine Scrn Negative (NEGATIVE) Ur Amphetamines Screen Negative (NEGATIVE) U Benzodiazepines Scrn Negative (NEGATIVE) U Oth Cocaine Metabols Negative (NEGATIVE) U Cannabinoids Screen Positive H (NEGATIVE) 08/03/17 08/03/17 08/03/17 Range/Units 09:45 09:41 08:17 WBC (4.5-11.0) 10^3/ul RBC (3.5-6.1) 10^6/uL Hgb (12.0-16.0) g/dL Hct (36.0-48.0) % MCV (80.0-105.0) fl MCH (25.0-35.0) pg MCHC (31.0-37.0) g/dl RDW (11.5-14.5) % Plt Count (120.0-450.0) 10^3/uL MPV (7.0-11.0) fl Gran % (50.0-68.0) % Lymph % (Auto) (22.0-35.0) % Sutton % (Auto) (1.0-6.0) % Eos % (Auto) (1.5-5.0) % Baso % (Auto) (0.0-3.0) % Gran # (1.4-6.5) Lymph # (Auto) (1.2-3.4) Sutton # (Auto) (0.1-0.6) Eos # (Auto) (0.0-0.7) Baso # (Auto) (0.0-2.0) K/mm3 Sodium 144 (132-148) mmol/L Potassium 4.2 (3.6-5.0) mmol/L Chloride 109 H (98-107) mmol/L Carbon Dioxide 24 (21-33) mmol/L Anion Gap 16 (10-20) BUN 20 (7-21) mg/dL Creatinine 0.9 (0.7-1.2) mg/dl Est GFR ( Amer) > 60 Est GFR (Non-Af Amer) > 60 POC Glucose (mg/dL) 107 130 H (65-110) mg/dL Random Glucose 114 H (70-110) mg/dL Hemoglobin A1c (4.2-6.5) % Calcium 10.4 (8.4-10.5) mg/dL Total Bilirubin 0.8 (0.2-1.3) mg/dL AST 89 H (14-36) U/L ALT 49 (7-56) U/L Alkaline Phosphatase 94 (38-126) U/L Troponin I ng/mL Total Protein 10.2 H (5.8-8.3) g/dL Albumin 4.6 (3.0-4.8) g/dL Globulin 5.6 gm/dL Albumin/Globulin Ratio 0.8 L (1.1-1.8) Triglycerides (35-160) mg/dL Cholesterol (130-200) mg/dL LDL Cholesterol Direct (0-129) mg/dL HDL Cholesterol (29-60) mg/dL Procalcitonin (0.19-0.49) NG/ML TSH 3rd Generation (0.46-4.68) mIU/mL Urine Opiates Screen (NEGATIVE) Urine Methadone Screen (NEGATIVE) Ur Barbiturates Screen (NEGATIVE) Ur Phencyclidine Scrn (NEGATIVE) Ur Amphetamines Screen (NEGATIVE) U Benzodiazepines Scrn (NEGATIVE) U Oth Cocaine Metabols (NEGATIVE) U Cannabinoids Screen (NEGATIVE) 08/03/17 08/03/17 08/03/17 Range/Units 07:20 06:30 06:30 WBC 7.3 (4.5-11.0) 10^3/ul RBC 4.12 (3.5-6.1) 10^6/uL Hgb 12.6 (12.0-16.0) g/dL Hct 35.7 L (36.0-48.0) % MCV 86.7 (80.0-105.0) fl MCH 30.6 (25.0-35.0) pg MCHC 35.3 (31.0-37.0) g/dl RDW 12.7 (11.5-14.5) % Plt Count 190 (120.0-450.0) 10^3/uL MPV 10.5 (7.0-11.0) fl Gran % 31.0 L (50.0-68.0) % Lymph % (Auto) 57.1 H (22.0-35.0) % Sutton % (Auto) 11.0 H (1.0-6.0) % Eos % (Auto) 0.8 L (1.5-5.0) % Baso % (Auto) 0.1 (0.0-3.0) % Gran # 2.26 (1.4-6.5) Lymph # (Auto) 4.2 H (1.2-3.4) Sutton # (Auto) 0.8 H (0.1-0.6) Eos # (Auto) 0.1 (0.0-0.7) Baso # (Auto) 0.01 (0.0-2.0) K/mm3 Sodium 142 (132-148) mmol/L Potassium 3.5 L (3.6-5.0) mmol/L Chloride 110 H (98-107) mmol/L Carbon Dioxide 22 (21-33) mmol/L Anion Gap 14 (10-20) BUN 24 H (7-21) mg/dL Creatinine 0.8 (0.7-1.2) mg/dl Est GFR ( Amer) > 60 Est GFR (Non-Af Amer) > 60 POC Glucose (mg/dL) 210 H (65-110) mg/dL Random Glucose 138 H (70-110) mg/dL Hemoglobin A1c (4.2-6.5) % Calcium 9.9 (8.4-10.5) mg/dL Total Bilirubin 0.7 (0.2-1.3) mg/dL AST 76 H (14-36) U/L ALT 47 (7-56) U/L Alkaline Phosphatase 79 (38-126) U/L Troponin I 0.12 ng/mL Total Protein 9.1 H (5.8-8.3) g/dL Albumin 4.0 (3.0-4.8) g/dL Globulin 5.1 gm/dL Albumin/Globulin Ratio 0.8 L (1.1-1.8) Triglycerides (35-160) mg/dL Cholesterol (130-200) mg/dL LDL Cholesterol Direct (0-129) mg/dL HDL Cholesterol (29-60) mg/dL Procalcitonin (0.19-0.49) NG/ML TSH 3rd Generation (0.46-4.68) mIU/mL Urine Opiates Screen (NEGATIVE) Urine Methadone Screen (NEGATIVE) Ur Barbiturates Screen (NEGATIVE) Ur Phencyclidine Scrn (NEGATIVE) Ur Amphetamines Screen (NEGATIVE) U Benzodiazepines Scrn (NEGATIVE) U Oth Cocaine Metabols (NEGATIVE) U Cannabinoids Screen (NEGATIVE) 08/03/17 08/03/17 08/03/17 Range/Units 06:02 04:23 03:04 WBC (4.5-11.0) 10^3/ul RBC (3.5-6.1) 10^6/uL Hgb (12.0-16.0) g/dL Hct (36.0-48.0) % MCV (80.0-105.0) fl MCH (25.0-35.0) pg MCHC (31.0-37.0) g/dl RDW (11.5-14.5) % Plt Count (120.0-450.0) 10^3/uL MPV (7.0-11.0) fl Gran % (50.0-68.0) % Lymph % (Auto) (22.0-35.0) % Sutton % (Auto) (1.0-6.0) % Eos % (Auto) (1.5-5.0) % Baso % (Auto) (0.0-3.0) % Gran # (1.4-6.5) Lymph # (Auto) (1.2-3.4) Sutton # (Auto) (0.1-0.6) Eos # (Auto) (0.0-0.7) Baso # (Auto) (0.0-2.0) K/mm3 Sodium (132-148) mmol/L Potassium (3.6-5.0) mmol/L Chloride (98-107) mmol/L Carbon Dioxide (21-33) mmol/L Anion Gap (10-20) BUN (7-21) mg/dL Creatinine (0.7-1.2) mg/dl Est GFR ( Amer) Est GFR (Non-Af Amer) POC Glucose (mg/dL) 127 H 139 H 166 H (65-110) mg/dL Random Glucose (70-110) mg/dL Hemoglobin A1c (4.2-6.5) % Calcium (8.4-10.5) mg/dL Total Bilirubin (0.2-1.3) mg/dL AST (14-36) U/L ALT (7-56) U/L Alkaline Phosphatase (38-126) U/L Troponin I ng/mL Total Protein (5.8-8.3) g/dL Albumin (3.0-4.8) g/dL Globulin gm/dL Albumin/Globulin Ratio (1.1-1.8) Triglycerides (35-160) mg/dL Cholesterol (130-200) mg/dL LDL Cholesterol Direct (0-129) mg/dL HDL Cholesterol (29-60) mg/dL Procalcitonin (0.19-0.49) NG/ML TSH 3rd Generation (0.46-4.68) mIU/mL Urine Opiates Screen (NEGATIVE) Urine Methadone Screen (NEGATIVE) Ur Barbiturates Screen (NEGATIVE) Ur Phencyclidine Scrn (NEGATIVE) Ur Amphetamines Screen (NEGATIVE) U Benzodiazepines Scrn (NEGATIVE) U Oth Cocaine Metabols (NEGATIVE) U Cannabinoids Screen (NEGATIVE) 08/03/17 08/03/17 08/03/17 Range/Units 01:55 01:30 01:30 WBC (4.5-11.0) 10^3/ul RBC (3.5-6.1) 10^6/uL Hgb (12.0-16.0) g/dL Hct (36.0-48.0) % MCV (80.0-105.0) fl MCH (25.0-35.0) pg MCHC (31.0-37.0) g/dl RDW (11.5-14.5) % Plt Count (120.0-450.0) 10^3/uL MPV (7.0-11.0) fl Gran % (50.0-68.0) % Lymph % (Auto) (22.0-35.0) % Sutton % (Auto) (1.0-6.0) % Eos % (Auto) (1.5-5.0) % Baso % (Auto) (0.0-3.0) % Gran # (1.4-6.5) Lymph # (Auto) (1.2-3.4) Sutton # (Auto) (0.1-0.6) Eos # (Auto) (0.0-0.7) Baso # (Auto) (0.0-2.0) K/mm3 Sodium (132-148) mmol/L Potassium (3.6-5.0) mmol/L Chloride (98-107) mmol/L Carbon Dioxide (21-33) mmol/L Anion Gap (10-20) BUN (7-21) mg/dL Creatinine (0.7-1.2) mg/dl Est GFR ( Amer) Est GFR (Non-Af Amer) POC Glucose (mg/dL) 278 H (65-110) mg/dL Random Glucose (70-110) mg/dL Hemoglobin A1c (4.2-6.5) % Calcium (8.4-10.5) mg/dL Total Bilirubin (0.2-1.3) mg/dL AST (14-36) U/L ALT (7-56) U/L Alkaline Phosphatase (38-126) U/L Troponin I ng/mL Total Protein (5.8-8.3) g/dL Albumin (3.0-4.8) g/dL Globulin gm/dL Albumin/Globulin Ratio (1.1-1.8) Triglycerides (35-160) mg/dL Cholesterol (130-200) mg/dL LDL Cholesterol Direct (0-129) mg/dL HDL Cholesterol (29-60) mg/dL Procalcitonin 0.06 L (0.19-0.49) NG/ML TSH 3rd Generation 1.45 (0.46-4.68) mIU/mL Urine Opiates Screen (NEGATIVE) Urine Methadone Screen (NEGATIVE) Ur Barbiturates Screen (NEGATIVE) Ur Phencyclidine Scrn (NEGATIVE) Ur Amphetamines Screen (NEGATIVE) U Benzodiazepines Scrn (NEGATIVE) U Oth Cocaine Metabols (NEGATIVE) U Cannabinoids Screen (NEGATIVE) 08/03/17 08/03/17 08/03/17 Range/Units 01:30 01:30 00:42 WBC (4.5-11.0) 10^3/ul RBC (3.5-6.1) 10^6/uL Hgb (12.0-16.0) g/dL Hct (36.0-48.0) % MCV (80.0-105.0) fl MCH (25.0-35.0) pg MCHC (31.0-37.0) g/dl RDW (11.5-14.5) % Plt Count (120.0-450.0) 10^3/uL MPV (7.0-11.0) fl Gran % (50.0-68.0) % Lymph % (Auto) (22.0-35.0) % Sutton % (Auto) (1.0-6.0) % Eos % (Auto) (1.5-5.0) % Baso % (Auto) (0.0-3.0) % Gran # (1.4-6.5) Lymph # (Auto) (1.2-3.4) Sutton # (Auto) (0.1-0.6) Eos # (Auto) (0.0-0.7) Baso # (Auto) (0.0-2.0) K/mm3 Sodium 139 (132-148) mmol/L Potassium 3.4 L (3.6-5.0) mmol/L Chloride 103 (98-107) mmol/L Carbon Dioxide 20 L (21-33) mmol/L Anion Gap 20 (10-20) BUN 26 H (7-21) mg/dL Creatinine 0.9 (0.7-1.2) mg/dl Est GFR ( Amer) > 60 Est GFR (Non-Af Amer) > 60 POC Glucose (mg/dL) 303 H (65-110) mg/dL Random Glucose 391 H* D (70-110) mg/dL Hemoglobin A1c 12.0 H (4.2-6.5) % Calcium 10.5 (8.4-10.5) mg/dL Total Bilirubin 0.8 (0.2-1.3) mg/dL AST 77 H (14-36) U/L ALT 49 (7-56) U/L Alkaline Phosphatase 114 (38-126) U/L Troponin I 0.11 D ng/mL Total Protein 10.5 H (5.8-8.3) g/dL Albumin 4.4 (3.0-4.8) g/dL Globulin 6.0 gm/dL Albumin/Globulin Ratio 0.7 L (1.1-1.8) Triglycerides 275 H (35-160) mg/dL Cholesterol 197 (130-200) mg/dL LDL Cholesterol Direct 100 (0-129) mg/dL HDL Cholesterol 42 (29-60) mg/dL Procalcitonin (0.19-0.49) NG/ML TSH 3rd Generation (0.46-4.68) mIU/mL Urine Opiates Screen (NEGATIVE) Urine Methadone Screen (NEGATIVE) Ur Barbiturates Screen (NEGATIVE) Ur Phencyclidine Scrn (NEGATIVE) Ur Amphetamines Screen (NEGATIVE) U Benzodiazepines Scrn (NEGATIVE) U Oth Cocaine Metabols (NEGATIVE) U Cannabinoids Screen (NEGATIVE) Laboratory Results - last 24 hr 08/03/17 08/03/17 08/03/17 00:42 01:30 01:30 WBC RBC Hgb Hct MCV MCH MCHC RDW Plt Count MPV Gran % Lymph % (Auto) Sutton % (Auto) Eos % (Auto) Baso % (Auto) Gran # Lymph # (Auto) Sutton # (Auto) Eos # (Auto) Baso # (Auto) Sodium 139 Potassium 3.4 L Chloride 103 Carbon Dioxide 20 L Anion Gap 20 BUN 26 H Creatinine 0.9 Est GFR ( Amer) > 60 Est GFR (Non-Af Amer) > 60 POC Glucose (mg/dL) 303 H Random Glucose 391 H* D Hemoglobin A1c 12.0 H Calcium 10.5 Total Bilirubin 0.8 AST 77 H ALT 49 Alkaline Phosphatase 114 Troponin I 0.11 D Total Protein 10.5 H Albumin 4.4 Globulin 6.0 Albumin/Globulin Ratio 0.7 L Triglycerides 275 H Cholesterol 197 LDL Cholesterol Direct 100 HDL Cholesterol 42 Procalcitonin TSH 3rd Generation Urine Opiates Screen Urine Methadone Screen Ur Barbiturates Screen Ur Phencyclidine Scrn Ur Amphetamines Screen U Benzodiazepines Scrn U Oth Cocaine Metabols U Cannabinoids Screen 08/03/17 08/03/17 08/03/17 01:30 01:30 01:55 WBC RBC Hgb Hct MCV MCH MCHC RDW Plt Count MPV Gran % Lymph % (Auto) Sutton % (Auto) Eos % (Auto) Baso % (Auto) Gran # Lymph # (Auto) Sutton # (Auto) Eos # (Auto) Baso # (Auto) Sodium Potassium Chloride Carbon Dioxide Anion Gap BUN Creatinine Est GFR ( Amer) Est GFR (Non-Af Amer) POC Glucose (mg/dL) 278 H Random Glucose Hemoglobin A1c Calcium Total Bilirubin AST ALT Alkaline Phosphatase Troponin I Total Protein Albumin Globulin Albumin/Globulin Ratio Triglycerides Cholesterol LDL Cholesterol Direct HDL Cholesterol Procalcitonin 0.06 L TSH 3rd Generation 1.45 Urine Opiates Screen Urine Methadone Screen Ur Barbiturates Screen Ur Phencyclidine Scrn Ur Amphetamines Screen U Benzodiazepines Scrn U Oth Cocaine Metabols U Cannabinoids Screen 08/03/17 08/03/17 08/03/17 03:04 04:23 06:02 WBC RBC Hgb Hct MCV MCH MCHC RDW Plt Count MPV Gran % Lymph % (Auto) Sutton % (Auto) Eos % (Auto) Baso % (Auto) Gran # Lymph # (Auto) Sutton # (Auto) Eos # (Auto) Baso # (Auto) Sodium Potassium Chloride Carbon Dioxide Anion Gap BUN Creatinine Est GFR ( Amer) Est GFR (Non-Af Amer) POC Glucose (mg/dL) 166 H 139 H 127 H Random Glucose Hemoglobin A1c Calcium Total Bilirubin AST ALT Alkaline Phosphatase Troponin I Total Protein Albumin Globulin Albumin/Globulin Ratio Triglycerides Cholesterol LDL Cholesterol Direct HDL Cholesterol Procalcitonin TSH 3rd Generation Urine Opiates Screen Urine Methadone Screen Ur Barbiturates Screen Ur Phencyclidine Scrn Ur Amphetamines Screen U Benzodiazepines Scrn U Oth Cocaine Metabols U Cannabinoids Screen 08/03/17 08/03/17 08/03/17 06:30 06:30 07:20 WBC 7.3 RBC 4.12 Hgb 12.6 Hct 35.7 L MCV 86.7 MCH 30.6 MCHC 35.3 RDW 12.7 Plt Count 190 MPV 10.5 Gran % 31.0 L Lymph % (Auto) 57.1 H Sutton % (Auto) 11.0 H Eos % (Auto) 0.8 L Baso % (Auto) 0.1 Gran # 2.26 Lymph # (Auto) 4.2 H Sutton # (Auto) 0.8 H Eos # (Auto) 0.1 Baso # (Auto) 0.01 Sodium 142 Potassium 3.5 L Chloride 110 H Carbon Dioxide 22 Anion Gap 14 BUN 24 H Creatinine 0.8 Est GFR ( Amer) > 60 Est GFR (Non-Af Amer) > 60 POC Glucose (mg/dL) 210 H Random Glucose 138 H Hemoglobin A1c Calcium 9.9 Total Bilirubin 0.7 AST 76 H ALT 47 Alkaline Phosphatase 79 Troponin I 0.12 Total Protein 9.1 H Albumin 4.0 Globulin 5.1 Albumin/Globulin Ratio 0.8 L Triglycerides Cholesterol LDL Cholesterol Direct HDL Cholesterol Procalcitonin TSH 3rd Generation Urine Opiates Screen Urine Methadone Screen Ur Barbiturates Screen Ur Phencyclidine Scrn Ur Amphetamines Screen U Benzodiazepines Scrn U Oth Cocaine Metabols U Cannabinoids Screen 08/03/17 08/03/17 08/03/17 08:17 09:41 09:45 WBC RBC Hgb Hct MCV MCH MCHC RDW Plt Count MPV Gran % Lymph % (Auto) Sutton % (Auto) Eos % (Auto) Baso % (Auto) Gran # Lymph # (Auto) Sutton # (Auto) Eos # (Auto) Baso # (Auto) Sodium 144 Potassium 4.2 Chloride 109 H Carbon Dioxide 24 Anion Gap 16 BUN 20 Creatinine 0.9 Est GFR ( Amer) > 60 Est GFR (Non-Af Amer) > 60 POC Glucose (mg/dL) 130 H 107 Random Glucose 114 H Hemoglobin A1c Calcium 10.4 Total Bilirubin 0.8 AST 89 H ALT 49 Alkaline Phosphatase 94 Troponin I Total Protein 10.2 H Albumin 4.6 Globulin 5.6 Albumin/Globulin Ratio 0.8 L Triglycerides Cholesterol LDL Cholesterol Direct HDL Cholesterol Procalcitonin TSH 3rd Generation Urine Opiates Screen Urine Methadone Screen Ur Barbiturates Screen Ur Phencyclidine Scrn Ur Amphetamines Screen U Benzodiazepines Scrn U Oth Cocaine Metabols U Cannabinoids Screen 08/03/17 08/03/17 08/03/17 09:50 10:18 11:15 WBC RBC Hgb Hct MCV MCH MCHC RDW Plt Count MPV Gran % Lymph % (Auto) Sutton % (Auto) Eos % (Auto) Baso % (Auto) Gran # Lymph # (Auto) Sutton # (Auto) Eos # (Auto) Baso # (Auto) Sodium Potassium Chloride Carbon Dioxide Anion Gap BUN Creatinine Est GFR ( Amer) Est GFR (Non-Af Amer) POC Glucose (mg/dL) 219 H 393 H Random Glucose Hemoglobin A1c Calcium Total Bilirubin AST ALT Alkaline Phosphatase Troponin I Total Protein Albumin Globulin Albumin/Globulin Ratio Triglycerides Cholesterol LDL Cholesterol Direct HDL Cholesterol Procalcitonin TSH 3rd Generation Urine Opiates Screen Negative Urine Methadone Screen Negative Ur Barbiturates Screen Negative Ur Phencyclidine Scrn Negative Ur Amphetamines Screen Negative U Benzodiazepines Scrn Negative U Oth Cocaine Metabols Negative U Cannabinoids Screen Positive H 08/03/17 08/03/17 08/03/17 12:07 12:50 13:56 WBC RBC Hgb Hct MCV MCH MCHC RDW Plt Count MPV Gran % Lymph % (Auto) Sutton % (Auto) Eos % (Auto) Baso % (Auto) Gran # Lymph # (Auto) Sutton # (Auto) Eos # (Auto) Baso # (Auto) Sodium Potassium Chloride Carbon Dioxide Anion Gap BUN Creatinine Est GFR ( Amer) Est GFR (Non-Af Amer) POC Glucose (mg/dL) 346 H 380 H 366 H Random Glucose Hemoglobin A1c Calcium Total Bilirubin AST ALT Alkaline Phosphatase Troponin I Total Protein Albumin Globulin Albumin/Globulin Ratio Triglycerides Cholesterol LDL Cholesterol Direct HDL Cholesterol Procalcitonin TSH 3rd Generation Urine Opiates Screen Urine Methadone Screen Ur Barbiturates Screen Ur Phencyclidine Scrn Ur Amphetamines Screen U Benzodiazepines Scrn U Oth Cocaine Metabols U Cannabinoids Screen Critical Care Progress Note - Nutrition Nutrition: Nutrition Category Date Time Status Consistent Carbohydrate [DIET] Diets 08/03/17 Breakfast Ordered Attending/Attestation - Attestation I have personally seen and examined this patient.: Yes I have fully participated in the care of the patient.: Yes I have reviewed all pertinent clinical information: Yes Notes (Text): 08/03/17 14:49 56 yo with new onset diabetes mellitus who presented with DKA. Fluid resuscitated, switch to oral hydration, AG closed, switched to longer acting formulation of insulin, ate lunch, tolerated ok. Needs DM education. Ok to downgrade to tele ccm time 40 min
[2017-08-03 10:03] LABS: ALB/GLOB RATIO 0.8 (1.1-1.8); ALBUMIN 4.6 g/dL (3.0-4.8); ALT/SGPT 49 U/L (7-56); AST/SGOT 89 U/L (14-36); BLOOD UREA NITROGEN 20 mg/dL (7-21); CALCIUM 10.4 mg/dL (8.4-10.5); GFR AFRICAN-AMERICAN > 60; GFR NON-AFRICAN AMERICAN > 60
[2017-08-03 10:30] LABS: BARBITURATES, UR NEGATIVE (NEGATIVE); BENZODIAZEPINES, UR NEGATIVE (NEGATIVE); OPIATES, UR NEGATIVE (NEGATIVE); PHENCYCLIDINE, UR NEGATIVE (NEGATIVE)
[2017-08-03] MEDS ORDERED: Insulin Regular 1 UNITS/0.01 ML ML SC STA ×2 (11:17→12:52)
[2017-08-03] MEDS ORDERED: Insulin Lispro (HUMAlog) HIGH Coverage SC SCH (11:30)
--- NOTE | 2017-08-03 16:27 | CP.PCM.PN ---
<Tomas Francois - Last Filed: 08/03/17 16:23> Subjective - Date & Time of Evaluation Date of Evaluation: 08/03/17 Time of Evaluation: 10:15 - Subjective Subjective: Patient seen and examined this AM. Patient with elevated BP. Patient reports improvement in her blurry vision from admission, as well as improvement in her nausea symptoms. Denies chest pain, shortness of breath, vomiting, diarrhea, fever, chills. Objective - Vital Signs/Intake and Output Vital Signs (last 24 hours): Temp Pulse Resp BP Pulse Ox 98.6 F 101 H 105 H 165/98 H 100 08/03/17 08:00 08/03/17 15:40 08/03/17 15:40 08/03/17 15:34 08/03/17 15:34 Intake and Output: 08/03/17 08/03/17 06:59 18:59 Intake Total 40 13.5 Balance 40 13.5 - Medications Medications: Current Medications Atorvastatin Calcium (Lipitor) 40 mg PO DIN [facility] Heparin Sodium (Porcine) (Heparin) 5,000 units SC Q8 [facility] PRN Reason: Protocol Last Admin: 08/03/17 13:19 Dose: 5,000 units Hydralazine HCl (Apresoline) 10 mg IVP Q6 PRN PRN Reason: Other Last Admin: 08/03/17 10:34 Dose: 10 mg Insulin Human Lispro (Humalog High) 0 units SC Q4 [facility] PRN Reason: Protocol Lisinopril (Zestril) 20 mg PO DAILY [facility] Pantoprazole Sodium (Protonix Ec Tab) 40 mg PO ACB [facility] - Labs Labs: 08/03/17 06:30 08/03/17 09:45 PT 13.5 SECONDS (9.4-12.5) H 08/02/17 19:20 INR 1.18 (0.93-1.08) H 08/02/17 19:20 APTT 26.9 Seconds (25.1-36.5) 08/02/17 19:20 - Constitutional Appears: No Acute Distress - Head Exam Head Exam: ATRAUMATIC, NORMAL INSPECTION, NORMOCEPHALIC - Eye Exam Eye Exam: EOMI, PERRL - Neck Exam Neck Exam: Full ROM - Respiratory Exam Respiratory Exam: Clear to Ausculation Bilateral, NORMAL BREATHING PATTERN. absent: Rhonchi, Wheezes - Cardiovascular Exam Cardiovascular Exam: REGULAR RHYTHM, +S1, +S2 - GI/Abdominal Exam GI & Abdominal Exam: Soft, Normal Bowel Sounds - Extremities Exam Extremities Exam: Normal Capillary Refill. absent: Pedal Edema, Tenderness - Neurological Exam Neurological Exam: Alert, Awake, Normal Gait, Oriented x3 - Psychiatric Exam Psychiatric exam: Anxious - Skin Skin Exam: Dry, Warm Assessment and Plan - Assessment and Plan (Free Text) Assessment: 56 year old female with past medical history of HTN who was admitted to ICU overnight for DKA management. Patient AG closed with IVF and insulin gtt transitioned off to subq. Patient transferred to tele. Plan: DKA - resolved Details: - Etiology: infectious process vs. dehydration - AG of 16 on admission, closed now 10 - HgA1c 12 - Procal low, chest xray no active disease, UA clean - Patient was placed on insulin gtt, transitioned to subq - tolerating diet - Potassium stable Plan: - Continue to monitor - Levemir 31 units - ISS high - [facility] - Diabetic education HTN Details: - Chronic in nature, essential - Unable to recall home medication Plan: - Lisinopril 20mg Daily - Hydralazine prn - continue to monitor DVT ppx: Heparin GI ppx: Protonix Case and plan discussed with attending Coretta Francois PGY-1 <Laz Almaguer - Last Filed: 08/03/17 18:05> Objective - Vital Signs/Intake and Output Vital Signs (last 24 hours): Temp Pulse Resp BP Pulse Ox 98.6 F 101 H 105 H 165/98 H 100 08/03/17 08:00 08/03/17 15:40 08/03/17 15:40 08/03/17 15:34 08/03/17 15:34 Intake and Output: 08/03/17 08/03/17 06:59 18:59 Intake Total 40 13.5 Balance 40 13.5 - Medications Medications: Current Medications Atorvastatin Calcium (Lipitor) 40 mg PO DIN [facility] Last Admin: 08/03/17 16:59 Dose: 40 mg Heparin Sodium (Porcine) (Heparin) 5,000 units SC Q8 [facility] PRN Reason: Protocol Last Admin: 08/03/17 13:19 Dose: 5,000 units Hydralazine HCl (Apresoline) 10 mg IVP Q6 PRN PRN Reason: Other Last Admin: 08/03/17 10:34 Dose: 10 mg Insulin Human Lispro (Humalog High) 0 units SC Q4 [facility] PRN Reason: Protocol Last Admin: 08/03/17 16:59 Dose: 4 units Lisinopril (Zestril) 20 mg PO DAILY [facility] Pantoprazole Sodium (Protonix Ec Tab) 40 mg PO ACB [facility] - Labs Labs: 08/03/17 06:30 08/03/17 09:45 PT 13.5 SECONDS (9.4-12.5) H 08/02/17 19:20 INR 1.18 (0.93-1.08) H 08/02/17 19:20 APTT 26.9 Seconds (25.1-36.5) 08/02/17 19:20 Attending/Attestation - Attestation I have personally seen and examined this patient.: Yes I have fully participated in the care of the patient.: Yes I have reviewed all pertinent clinical information, including history, physical exam and plan: Yes Notes (Text): 08/03/17 18:02 Medical record note made by the resident after discussion with my direction and input after the patient was personally seen and examined by me. I have reviewed the chart and agree that the record accurately reflects by personal performance of the history, physical exam, data review, and medical decision-making, in the course for the patient. I have also personally directed the plan of care. 56 year old female with past medical history of HTN was admitted with new onset DM,DKA has responded well to IV hydration and insulin infusion. Anion gap is resolved.Patient is off insulin drip ,will monitor blood sugars and adjust medication. Blood pressure is running high, started on Lisinopril 20 mg po daily.We will monitor and adjust medication. Management plan was discussed in detail with patient. Education was provided.
[2017-08-03] MEDS: Insulin Lispro (HUMAlog) HIGH Coverage SC SCH ×2 (16:59→20:46)
--- NOTE | 2017-08-03 19:28 | CARD ---
APPROVED REPORT EKG Measurement Heart [id number] IN [id number] [id number] <Conclusion> Normal sinus rhythm Biatrial enlargement Left ventricular hypertrophy Abnormal ECG
[2017-08-04] MEDS: Insulin Lispro (HUMAlog) HIGH Coverage SC SCH ×5 (00:11→21:58)
[2017-08-04] MEDS ORDERED: Oxycodone/Acetaminophen 5/325 mg Tab PO ONE (02:39)
[2017-08-04 06:24] LABS: BASO # 0.02 K/mm3 (0.0-2.0); BASO % 0.3 % (0.0-3.0); EOS % 0.5 % (1.5-5.0); GRAN # 2.18 (1.4-6.5); GRAN % 28.4 % (50.0-68.0); HEMOGLOBIN 13.7 g/dL (12.0-16.0); LYMPH # 4.8 (1.2-3.4); LYMPH % 62.7 % (22.0-35.0); MEAN CORPUSCULAR HEMOGLOBIN 30.7 pg (25.0-35.0); MEAN CORPUSCULAR HGB CONC 35.3 g/dl (31.0-37.0); MEAN PLATELET VOLUME 11.1 fl (7.0-11.0); MONO # 0.6 (0.1-0.6); MONO % 8.1 % (1.0-6.0); RBC 4.46 10^6/uL (3.5-6.1); RED CELL DISTRIBUTION WIDTH 12.9 % (11.5-14.5); WHITE BLOOD COUNT 7.7 10^3/ul (4.5-11.0)
[2017-08-04 07:58] LABS: ALB/GLOB RATIO 0.8 (1.1-1.8); ALBUMIN 4.4 g/dL (3.0-4.8); ALT/SGPT 59 U/L (7-56); AST/SGOT 105 U/L (14-36); BLOOD UREA NITROGEN 18 mg/dL (7-21); GFR AFRICAN-AMERICAN > 60; GFR NON-AFRICAN AMERICAN > 60
[2017-08-04] MEDS: Pantoprazole 40 mg EC Tab PO SCH (08:21)
[2017-08-04] MEDS ORDERED: Insulin Detemir 100 units/ml Vial (Levemir) SC SCH ×2 (10:00→22:00)
--- NOTE | 2017-08-04 10:18 | CP.PCM.PN ---
<Tomas Francois - Last Filed: 08/04/17 11:44> Subjective - Date & Time of Evaluation Date of Evaluation: 08/04/17 Time of Evaluation: 10:15 - Subjective Subjective: Patient seen and examined this AM. Patient resting comfortably in bed. No acute events reported overnight. Patient sugars elevated over night. She denies chest pain, shortness of breath, abdominal pain, nausea, vomiting, diarrhea, constipation. Objective - Vital Signs/Intake and Output Vital Signs (last 24 hours): Temp Pulse Resp BP Pulse Ox 98.1 F 77 18 126/85 99 08/04/17 08:44 08/04/17 08:44 08/04/17 08:44 08/04/17 08:44 08/04/17 08:44 Intake and Output: 08/04/17 08/04/17 06:59 18:59 Intake Total 1220 Balance 1220 - Medications Medications: Current Medications Atorvastatin Calcium (Lipitor) 40 mg PO DIN [facility] Last Admin: 08/03/17 16:59 Dose: 40 mg Heparin Sodium (Porcine) (Heparin) 5,000 units SC Q8 [facility] PRN Reason: Protocol Last Admin: 08/04/17 05:16 Dose: 5,000 units Hydralazine HCl (Apresoline) 10 mg IVP Q6 PRN PRN Reason: Other Last Admin: 08/03/17 10:34 Dose: 10 mg Insulin Detemir (Levemir) 15 unit SC BID [facility] Insulin Human Lispro (Humalog High) 0 units SC Q4 [facility] PRN Reason: Protocol Last Admin: 08/04/17 08:21 Dose: 7 units Lisinopril (Zestril) 20 mg PO DAILY [facility] Pantoprazole Sodium (Protonix Ec Tab) 40 mg PO ACB [facility] Last Admin: 08/04/17 08:21 Dose: 40 mg - Labs Labs: 08/04/17 05:30 08/04/17 05:30 PT 13.5 SECONDS (9.4-12.5) H 08/02/17 19:20 INR 1.18 (0.93-1.08) H 08/02/17 19:20 APTT 26.9 Seconds (25.1-36.5) 08/02/17 19:20 - Constitutional Appears: No Acute Distress - Head Exam Head Exam: ATRAUMATIC, NORMAL INSPECTION, NORMOCEPHALIC - Eye Exam Eye Exam: EOMI, PERRL - ENT Exam ENT Exam: Mucous Membranes Moist - Respiratory Exam Respiratory Exam: Clear to Ausculation Bilateral, NORMAL BREATHING PATTERN. absent: Rales, Rhonchi, Wheezes - Cardiovascular Exam Cardiovascular Exam: REGULAR RHYTHM, +S1, +S2 - GI/Abdominal Exam GI & Abdominal Exam: Soft, Normal Bowel Sounds - Extremities Exam Extremities Exam: Normal Capillary Refill. absent: Calf Tenderness, Pedal Edema - Neurological Exam Neurological Exam: Alert, Awake, Normal Gait - Psychiatric Exam Psychiatric exam: Normal Affect, Normal Mood - Skin Skin Exam: Dry, Warm Assessment and Plan - Assessment and Plan (Free Text) Assessment: 56 year old female with past medical history of HTN who was admitted to ICU overnight for DKA management. Patient AG closed with IVF and insulin gtt transitioned off to subq. Patient to have continued diabetic education today. Plan: DM2 with DKA Details: - Etiology: infectious process vs. dehydration - HgA1c 12 - Procal low, chest xray no active disease, UA clean - Patient was placed on insulin gtt, transitioned to subq - tolerating diet - Potassium stable - Sugars elevated overnight Plan: - Levemir 20 Qhs - Lispro 6 units ACHS - ISS high - [facility] - Diabetic education HTN Details: - Chronic in nature, essential - Unable to recall home medication Plan: - Lisinopril 20mg Daily - Hydralazine prn - continue to monitor DVT ppx: Heparin GI ppx: Protonix Case and plan discussed with attending Coretta Francois PGY-1 <Laz Almaguer - Last Filed: 08/04/17 16:17> Objective - Vital Signs/Intake and Output Vital Signs (last 24 hours): Temp Pulse Resp BP Pulse Ox 98.1 F 77 18 126/85 99 08/04/17 08:44 08/04/17 11:16 08/04/17 08:44 08/04/17 11:16 08/04/17 08:44 Intake and Output: 08/04/17 08/04/17 06:59 18:59 Intake Total 1220 Balance 1220 - Medications Medications: Current Medications Atorvastatin Calcium (Lipitor) 40 mg PO DIN [facility] Last Admin: 08/03/17 16:59 Dose: 40 mg Heparin Sodium (Porcine) (Heparin) 5,000 units SC Q8 [facility] PRN Reason: Protocol Last Admin: 08/04/17 13:21 Dose: 5,000 units Hydralazine HCl (Apresoline) 10 mg IVP Q6 PRN PRN Reason: Other Last Admin: 08/03/17 10:34 Dose: 10 mg Insulin Detemir (Levemir) 20 unit SC HS [facility] Insulin Human Lispro (Humalog) 6 units SC AC [facility] Last Admin: 08/04/17 12:05 Dose: 6 units Insulin Human Lispro (Humalog High) 0 units SC ACHS [facility] PRN Reason: Protocol Lisinopril (Zestril) 20 mg PO DAILY [facility] Last Admin: 08/04/17 11:16 Dose: 20 mg Pantoprazole Sodium (Protonix Ec Tab) 40 mg PO ACB [facility] Last Admin: 08/04/17 08:21 Dose: 40 mg - Labs Labs: 08/04/17 05:30 08/04/17 05:30 PT 13.5 SECONDS (9.4-12.5) H 08/02/17 19:20 INR 1.18 (0.93-1.08) H 08/02/17 19:20 APTT 26.9 Seconds (25.1-36.5) 08/02/17 19:20 Attending/Attestation - Attestation I have personally seen and examined this patient.: Yes I have fully participated in the care of the patient.: Yes I have reviewed all pertinent clinical information, including history, physical exam and plan: Yes Notes (Text): 08/04/17 16:15 Medical record note made by the resident after discussion with my direction and input after the patient was personally seen and examined by me. I have reviewed the chart and agree that the record accurately reflects by personal performance of the history, physical exam, data review, and medical decision-making, in the course for the patient. I have also personally directed the plan of care. 56 year old female with past medical history of HTN was admitted with new onset DM,DKA has responded well to IV hydration and insulin infusion. Anion gap is resolved.Patient is off insulin drip .Hemoglobin 1 AC is 12. Patient has been started on Levemir and insulin bolus regimen.We will monitor blood sugars. Anti hypertensive medication has been adjusted. Management plan was discussed in detail with patient. Education was provided. 08/04/17 16:16
[2017-08-04] MEDS ORDERED: Insulin Lispro 1 UNITS/0.01 ML SC SCH (11:30)
[2017-08-04] MEDS: Insulin Lispro 1 UNITS/0.01 ML SC SCH ×2 (12:05→16:52)
--- NOTE | 2017-08-04 23:01 | CARD ---
APPROVED REPORT EKG Measurement Heart [id number] SC [id number] [id number] <Conclusion> Normal sinus rhythm Possible Left atrial enlargement Left ventricular hypertrophy Prolonged QT Abnormal ECG
[2017-08-05 06:56] LABS: BASO # 0.01 K/mm3 (0.0-2.0); BASO % 0.2 % (0.0-3.0); EOS % 0.6 % (1.5-5.0); GRAN # 2.05 (1.4-6.5); GRAN % 32.5 % (50.0-68.0); HEMOGLOBIN 13.3 g/dL (12.0-16.0); LYMPH # 3.5 (1.2-3.4); LYMPH % 55.5 % (22.0-35.0); MEAN CORPUSCULAR HEMOGLOBIN 30.4 pg (25.0-35.0); MEAN PLATELET VOLUME 11.2 fl (7.0-11.0); MONO # 0.7 (0.1-0.6); MONO % 11.2 % (1.0-6.0); RBC 4.37 10^6/uL (3.5-6.1); RED CELL DISTRIBUTION WIDTH 12.8 % (11.5-14.5); WHITE BLOOD COUNT 6.3 10^3/ul (4.5-11.0)
[2017-08-05 07:24] LABS: ALB/GLOB RATIO 0.8 (1.1-1.8); ALBUMIN 4.2 g/dL (3.0-4.8); ALT/SGPT 68 U/L (7-56); AST/SGOT 109 U/L (14-36); BLOOD UREA NITROGEN 22 mg/dL (7-21); CALCIUM 9.8 mg/dL (8.4-10.5); GFR AFRICAN-AMERICAN > 60; GFR NON-AFRICAN AMERICAN > 60
[2017-08-05] MEDS ORDERED: Insulin Detemir 100 units/ml Vial (Levemir) SC SCH (08:01)
[2017-08-05] MEDS: Insulin Lispro (HUMAlog) HIGH Coverage SC SCH ×5 (08:15→20:37)
[2017-08-05] MEDS: Insulin Lispro 1 UNITS/0.01 ML SC SCH ×3 (08:16→17:01)
[2017-08-05] MEDS: Pantoprazole 40 mg EC Tab PO SCH (08:26)
--- NOTE | 2017-08-05 13:33 | CP.PCM.PN ---
Subjective - Date & Time of Evaluation Date of Evaluation: 08/05/17 Time of Evaluation: 13:30 - Subjective Subjective: Patient seen and examined. No acute events overnight. Patient sugar elevated this AM. Patient educated on no outside food at this time. Objective - Vital Signs/Intake and Output Vital Signs (last 24 hours): Temp Pulse Resp BP Pulse Ox 97.9 F 93 H 17 159/93 H 100 08/05/17 06:00 08/05/17 09:29 08/05/17 06:00 08/05/17 09:29 08/05/17 06:00 Intake and Output: 08/05/17 08/05/17 06:59 18:59 Intake Total 420 Balance 420 - Medications Medications: Current Medications Atorvastatin Calcium (Lipitor) 40 mg PO DIN [facility] Last Admin: 08/04/17 16:53 Dose: 40 mg Heparin Sodium (Porcine) (Heparin) 5,000 units SC Q8 [facility] PRN Reason: Protocol Last Admin: 08/05/17 06:16 Dose: 5,000 units Hydralazine HCl (Apresoline) 10 mg IVP Q6 PRN PRN Reason: Other Last Admin: 08/04/17 16:53 Dose: 10 mg Insulin Detemir (Levemir) 25 unit SC HS [facility] Insulin Human Lispro (Humalog High) 0 units SC Q4H [facility] PRN Reason: Protocol Last Admin: 08/05/17 12:41 Dose: 15 units Insulin Human Lispro (Humalog) 8 units SC AC [facility] Last Admin: 08/05/17 12:41 Dose: 8 units Lisinopril (Zestril) 20 mg PO DAILY [facility] Last Admin: 08/05/17 09:29 Dose: 20 mg Pantoprazole Sodium (Protonix Ec Tab) 40 mg PO ACB [facility] Last Admin: 08/05/17 08:26 Dose: 40 mg - Labs Labs: 08/05/17 06:00 08/05/17 06:00 PT 13.5 SECONDS (9.4-12.5) H 08/02/17 19:20 INR 1.18 (0.93-1.08) H 08/02/17 19:20 APTT 26.9 Seconds (25.1-36.5) 08/02/17 19:20 - Constitutional Appears: No Acute Distress - Head Exam Head Exam: ATRAUMATIC, NORMAL INSPECTION, NORMOCEPHALIC - Eye Exam Eye Exam: EOMI, PERRL - Neck Exam Neck Exam: Full ROM - Respiratory Exam Respiratory Exam: Clear to Ausculation Bilateral, NORMAL BREATHING PATTERN. absent: Rhonchi, Wheezes - Cardiovascular Exam Cardiovascular Exam: REGULAR RHYTHM, +S1, +S2 - GI/Abdominal Exam GI & Abdominal Exam: Soft, Normal Bowel Sounds - Extremities Exam Extremities Exam: Normal Capillary Refill. absent: Calf Tenderness, Pedal Edema - Back Exam Back Exam: absent: CVA tenderness (L), CVA tenderness (R) - Neurological Exam Neurological Exam: Alert, Awake, Oriented x3 - Psychiatric Exam Psychiatric exam: Anxious, Normal Mood - Skin Skin Exam: Dry, Warm Assessment and Plan - Assessment and Plan (Free Text) Assessment: 56 year old female with past medical history of HTN who was admitted to ICU overnight for DKA management. Patient newly dx DM2 with HgA1c of 12. Patient started on insulin regiment with titration ongoing. Plan: DM2 with DKA Details: - Etiology: infectious process vs. dehydration - HgA1c 12 - Procal low, chest xray no active disease, UA clean - Patient was placed on insulin gtt, transitioned to subq - Sugars elevated this AM - diabetic education, insulin injection and sugar checking education Plan: - Levemir 25 Qhs - Lispro 8 units ACHS - ISS high - ACHS and Q4 check - Diabetic education - Patient instructed no outside food allowed HTN Details: - Chronic in nature, essential - Unable to recall home medication Plan: - Lisinopril 20mg Daily - Hydralazine prn - continue to monitor DVT ppx: Heparin GI ppx: Protonix Case and plan discussed with attending Coretta Francois PGY-1
[2017-08-06] MEDS: Insulin Lispro (HUMAlog) HIGH Coverage SC SCH ×4 (00:32→12:00)
[2017-08-06] MEDS: Insulin Lispro 1 UNITS/0.01 ML SC SCH ×3 (08:43→17:26)
[2017-08-06] MEDS: Pantoprazole 40 mg EC Tab PO SCH (08:44)
[2017-08-06 09:50] LABS: BASO # 0.02 K/mm3 (0.0-2.0); BASO % 0.4 % (0.0-3.0); EOS # 0.1 (0.0-0.7); GRAN # 1.6 (1.4-6.5); HEMOGLOBIN 13.1 g/dL (12.0-16.0); LYMPH # 3.1 (1.2-3.4); LYMPH % 59.1 % (22.0-35.0); MEAN CORPUSCULAR HEMOGLOBIN 30.5 pg (25.0-35.0); MEAN CORPUSCULAR HGB CONC 34.3 g/dl (31.0-37.0); MEAN PLATELET VOLUME 10.7 fl (7.0-11.0); MONO # 0.4 (0.1-0.6); MONO % 8.5 % (1.0-6.0); RBC 4.29 10^6/uL (3.5-6.1); RED CELL DISTRIBUTION WIDTH 12.8 % (11.5-14.5); WHITE BLOOD COUNT 5.2 10^3/ul (4.5-11.0)
[2017-08-06] MEDS ORDERED: Insulin Detemir 100 units/ml Vial (Levemir) SC SCH (09:56)
--- NOTE | 2017-08-06 11:37 | CP.PCM.PN ---
<Donna Esquivel - Last Filed: 08/06/17 12:05> Subjective - Date & Time of Evaluation Date of Evaluation: 08/06/17 Time of Evaluation: 11:31 - Subjective Subjective: Internal Medicine Progress Note: Patient seen and examined at bedside. Per nursing no acute events overnight. Patient is doing well, offering no complaints at this time. She was seen by Pony Rougher yesterday. Blood sugars are still high, fasting BS 306. Denies headaches, dizziness, cp, palpitations, sob, abdominal pain, urinary symptoms. Objective - Vital Signs/Intake and Output Vital Signs (last 24 hours): Temp Pulse Resp BP Pulse Ox 97.7 F 85 20 131/84 100 08/06/17 08:37 08/06/17 09:00 08/06/17 08:37 08/06/17 09:00 08/06/17 08:37 Intake and Output: 08/06/17 08/06/17 06:59 18:59 Intake Total 480 360 Balance 480 360 - Medications Medications: Current Medications Heparin Sodium (Porcine) (Heparin) 5,000 units SC Q8 [facility] PRN Reason: Protocol Last Admin: 08/06/17 05:47 Dose: 5,000 units Hydralazine HCl (Apresoline) 10 mg IVP Q6 PRN PRN Reason: Other Last Admin: 08/04/17 16:53 Dose: 10 mg Insulin Detemir (Levemir) 30 unit SC HS [facility] Insulin Human Lispro (Humalog High) 0 units SC Q4H [facility] PRN Reason: Protocol Last Admin: 08/06/17 08:43 Dose: 10 units Insulin Human Lispro (Humalog) 8 units SC AC [facility] Last Admin: 08/06/17 08:43 Dose: 8 units Lisinopril (Zestril) 20 mg PO DAILY [facility] Last Admin: 08/06/17 09:00 Dose: 20 mg Pantoprazole Sodium (Protonix Ec Tab) 40 mg PO ACB [facility] Last Admin: 08/06/17 08:44 Dose: 40 mg - Labs Labs: 08/06/17 09:45 08/05/17 06:00 PT 13.5 SECONDS (9.4-12.5) H 08/02/17 19:20 INR 1.18 (0.93-1.08) H 05/01/18 19:20 APTT 26.9 Seconds (25.1-36.5) 08/02/17 19:20 - Constitutional Appears: Well, No Acute Distress - Head Exam Head Exam: ATRAUMATIC, NORMAL INSPECTION, NORMOCEPHALIC - Eye Exam Eye Exam: EOMI, Normal appearance Pupil Exam: NORMAL ACCOMODATION - ENT Exam ENT Exam: Mucous Membranes Moist - Neck Exam Neck Exam: Full ROM - Respiratory Exam Respiratory Exam: Clear to Ausculation Bilateral, NORMAL BREATHING PATTERN. absent: Rales, Rhonchi, Wheezes - Cardiovascular Exam Cardiovascular Exam: REGULAR RHYTHM, +S1, +S2 - GI/Abdominal Exam GI & Abdominal Exam: Soft, Normal Bowel Sounds. absent: Guarding, Rigid, Tenderness - Extremities Exam Extremities Exam: Normal Inspection - Back Exam Back Exam: NORMAL INSPECTION - Neurological Exam Neurological Exam: Alert, Awake, Oriented x3 - Psychiatric Exam Psychiatric exam: Normal Affect, Normal Mood - Skin Skin Exam: Dry, Normal Color, Warm Assessment and Plan - Assessment and Plan (Free Text) Assessment: 56 year old female with past medical history of HTN who was admitted to ICU for DKA management. Patient newly dx DM2 with HgA1c of 12. Patient started on insulin regiment with titration ongoing. Patient now on med/surg floors. Plan: Newly diagnosed DM2 with DKA - Etiology for DKA: infectious process vs. dehydration - HgA1c 12 on admission - Procal low, chest xray no active disease, UA clean - Patient was placed on insulin gtt, transitioned to subq - Sugars are still elevated this AM - Was seen by Pony Rougher yesterday - Increased Levemir 30 QHS - Lispro 8 units ACHS - ISS high - ACHS and Q4 check - Endocrine consult placed to Dr Macedo, help is appreciated - Patient instructed no outside food allowed HTN - Chronic in nature, essential - Unable to recall home medication - Lisinopril 20mg Daily - Hydralazine prn - continue to monitor Elevated LFTs - LFTs were normal on admission, currently trending up AST/ALT 130/96 - Patient on Lipitor 40mg PO HS - We discontinued Lipitor as elevation in LFTs is likely medication induced - Hepatitis panel ordered - We recommend outpatient abdominal US to evaluate for any liver pathology Hypertriglyceridemia - Triglycerides 254 - LDL cholesterol 100 - Will discontinue Lipitor 40mg PO HS - Recommending Diet modification and exercise, recheck Lipid panel in 6 months DVT ppx: Heparin GI ppx: Protonix Plan discussed with Dr Coronel <Cameron Coronel - Last Filed: 08/06/17 14:52> Objective - Vital Signs/Intake and Output Vital Signs (last 24 hours): Temp Pulse Resp BP Pulse Ox 97.7 F 85 20 131/84 100 08/06/17 08:37 08/06/17 09:00 08/06/17 08:37 08/06/17 09:00 08/06/17 08:37 Intake and Output: 08/06/17 08/06/17 06:59 18:59 Intake Total 480 360 Balance 480 360 - Medications Medications: Current Medications Heparin Sodium (Porcine) (Heparin) 5,000 units SC Q8 [facility] PRN Reason: Protocol Last Admin: 08/06/17 05:47 Dose: 5,000 units Hydralazine HCl (Apresoline) 10 mg IVP Q6 PRN PRN Reason: Other Last Admin: 08/04/17 16:53 Dose: 10 mg Potassium Chloride 20 meq/ (Sodium Chloride) 1,010 mls @ 100 mls/hr IV .Q10H6M [facility] Last Admin: 08/06/17 13:36 Dose: 100 mls/hr Insulin Detemir (Levemir) 30 unit SC HS [facility] Insulin Human Lispro (Humalog Low) 0 units SC ACHS [facility] PRN Reason: Protocol Insulin Human Lispro (Humalog) 14 units SC AC [facility] Lisinopril (Zestril) 20 mg PO DAILY [facility] Last Admin: 08/06/17 09:00 Dose: 20 mg Pantoprazole Sodium (Protonix Ec Tab) 40 mg PO ACB [facility] Last Admin: 08/06/17 08:44 Dose: 40 mg - Labs Labs: 08/06/17 09:45 08/06/17 09:45 PT 13.5 SECONDS (9.4-12.5) H 08/02/17 19:20 INR 1.18 (0.93-1.08) H 08/02/17 19:20 APTT 26.9 Seconds (25.1-36.5) 08/02/17 19:20 Attending/Attestation - Attestation I have personally seen and examined this patient.: Yes I have fully participated in the care of the patient.: Yes I have reviewed all pertinent clinical information, including history, physical exam and plan: Yes Notes (Text): I have seen and examined the patient at bedside. Agree with the above note with the following additions/ exceptions: Briefly this is 56 year old female with history of HTN who was admitted with new onset DM. DKA has responded well to IV hydration and insulin infusion. Anion gap has resolved. Patient is off insulin drip. Hemoglobin A1C is 12. Continue insulin. Blood sugars are still uncontrolled. Will consult refining supervisor. Management plan was discussed in detail with patient. Education was provided. Upon discharge patient will follow up with Dr Pederson.
[2017-08-06 11:40] LABS: ALB/GLOB RATIO 0.8 (1.1-1.8); ALBUMIN 4.3 g/dL (3.0-4.8); ALT/SGPT 96 U/L (7-56); AST/SGOT 130 U/L (14-36); BLOOD UREA NITROGEN 22 mg/dL (7-21); CALCIUM 9.9 mg/dL (8.4-10.5); GFR AFRICAN-AMERICAN > 60; GFR NON-AFRICAN AMERICAN > 60
[2017-08-06] MEDS ORDERED: Potassium Chloride 20 mEq ER Tab PO SCH (12:15)
[2017-08-06] MEDS: Potassium Chloride 20 MEQ in Sodium Chloride 0.45% 1,000 ML IV SCH ×2 (13:36→23:06)
[2017-08-06] MEDS: Insulin Lispro (humaLOG) LOW Coverage SC SCH ×2 (17:25→21:48)
--- NOTE | 2017-08-06 22:25 | CON ---
DATE: ENDOCRINOLOGY CONSULT LOCATION: Room 374. HISTORY OF PRESENT ILLNESS: This is a 56-year-old female with known history of hypertension and dyslipidemia, presenting here with recent onset of uncontrolled type 2 insulin-requiring diabetes, diabetic ketoacidosis, dehydration, and is now being referred for diabetic evaluation and management. She received intensive insulin therapy with an insulin drip infusion in the intensive care unit as noted. Moreover, she also had vigorous IV hydration with normal saline infusion as given and at this time continues to have prerenal azotemia and hypokalemia as expected from the persistent increased osmotic diuresis thereof. PAST MEDICAL HISTORY: As mentioned above, history of hypertension and dyslipidemia, history of polysubstance use. FAMILY HISTORY: Positive for diabetes and hypertension. SOCIAL HISTORY: The patient admits to smoking half a pack a day for over 20 years with occasional snorting of cocaine, also drinks alcohol socially as noted. REVIEW OF SYSTEMS: As mentioned above, admits to generalized body weakness with easy fatigability and tiredness and increasing hypersomnolence and lethargy in the last week or so prior to admission. Also admits to visual blurring with bifrontal headaches and progressively worsening dizziness and lightheadedness, especially on the day of admission. No chest pains or palpitations, but admits to shortness of breath especially on exertion. Her oral intake has been variable with nausea, dyspepsia, almost anorexia, and supervening marked polyuria, nocturia and polydipsia as noted. Also admits to about 5-pound or more weight loss. PHYSICAL EXAMINATION: GENERAL: An average built female, in no apparent distress. VITAL SIGNS: Blood pressure of 160/100, pulse of 70 beats per minute and regular, temperature 98, respirations 20, height is 5 feet 5 inch, weight is 136 pounds. HEENT: Head normocephalic. Eyes anicteric with pink conjunctivae. Funduscopy not possible at this time. Ears, nose and throat otherwise normal. NECK: Supple. Thyroid gland is normal in size. No carotid bruits or cervical adenopathy. CARDIOPULMONARY: Some adynamic precordium. S1 and S2, rapid and regular. LUNGS: Clear to auscultation. ABDOMEN: Flat, soft with positive bowel sounds. EXTREMITIES: No peripheral edema. Pulses are +2 bilaterally. LABORATORY DATA: Her chemistry showed a BUN of 22. Sodium 138, potassium 3.3, chloride 103, CO2 of 21. Glucose 414. Creatinine 0.7. Her glucose levels overnight ranged from 243 to 306 and 325 mg/dL. Her hemoglobin A1c is 12%, which is expectedly high as she has been undiagnosed and untreated at this time until the present time. Her triglycerides are 275. Cholesterol is 197. Her LDH is 666, total creatinine kinase of 383, and a CK-MB of 19.7. ASSESSMENT: This is a 56-year-old female with uncontrolled and decompensated type 2 insulin-requiring diabetes presenting here with diabetic ketoacidosis and dehydration and is now being referred for diabetic evaluation and management. She continues to have prerenal azotemia, expected from the increased osmotic diuresis as noted thereof. She also still has mild ketosis and hypokalemia as expected. With the initial presentation of diabetic ketoacidosis and marked glucose toxicity with glucose values over 800, would expect the patient at this point in time to really need insulin therapy to not only override increased insulin resistance, but also to improve the marked glucose toxicity thereof. Many times especially if they have enough , the patient are able to respond dramatically to oral hypoglycemic therapy given in combination acted and received a basal and bolus insulin drug combination as inpatient. PLAN OF MANAGEMENT: As discussed with the patient's plan to have bedside imperative need for initiation of more physiologic basal and bolus insulin drug combination has to be discussed and reinforced with the patient at bedside. We will modify the coverage scale to obviate hypoglycemia and detailed orders have been given for a much much lower dosing coverage scale for Humalog insulin as given. We will titrate Humalog given preprandially to a dose of 14 units subcu t.i.d. before meals to start at dinner time today as ordered. We will also modify the coverage scale and detailed orders have been given. We will continue the basal insulin given as Levemir at 30 units subcu at bedtime daily as given. We will titrate incrementally as indicated to optimize metabolic control. We will initiate diabetic education, dietary instructions to include insulin self-administration and fingerstick glucose monitoring at home as ordered. We will contact our diabetic nurse educator, Ms. Silvia Spangler regarding the aforementioned. I would also consult our dietitian for dietary counseling to include healthier food choices and preferentially higher protein than carbohydrates for healthier food choices. We will obtain serial chemistries and at this time, we will restart IV hydration with half-normal saline with added KCl 20 mEq at least for one more day to optimize her hydration and replenishment of the lost fluids and electrolytes of the increased osmotic diuresis. We will follow. Maite Macedo MD
[2017-08-07] MEDS: Potassium Chloride 20 MEQ in Sodium Chloride 0.45% 1,000 ML IV SCH ×3 (00:43→21:23)
[2017-08-07] MEDS: Insulin Lispro (humaLOG) LOW Coverage SC SCH ×4 (07:51→22:29)
[2017-08-07 08:05] LABS: HEPATITIS B SURFACE AG Negative (NEGATIVE)
[2017-08-07 08:11] LABS: HEPATITIS A IGM NEGATIVE (NEGATIVE); HEPATITIS B CORE AB NEGATIVE (NEGATIVE)
[2017-08-07 08:25] LABS: BASO # 0.03 K/mm3 (0.0-2.0); BASO % 0.6 % (0.0-3.0); EOS # 0.1 (0.0-0.7); EOS % 0.9 % (1.5-5.0); GRAN # 1.42 (1.4-6.5); GRAN % 26.2 % (50.0-68.0); HEMOGLOBIN 11.8 g/dL (12.0-16.0); LYMPH # 3.2 (1.2-3.4); MEAN CELL VOLUME 89.5 fl (80.0-105.0); MEAN CORPUSCULAR HEMOGLOBIN 30.2 pg (25.0-35.0); MEAN CORPUSCULAR HGB CONC 33.7 g/dl (31.0-37.0); MEAN PLATELET VOLUME 10.4 fl (7.0-11.0); MONO # 0.7 (0.1-0.6); MONO % 13.3 % (1.0-6.0); RBC 3.91 10^6/uL (3.5-6.1); RED CELL DISTRIBUTION WIDTH 13.1 % (11.5-14.5); WHITE BLOOD COUNT 5.4 10^3/ul (4.5-11.0)
[2017-08-07] MEDS: Pantoprazole 40 mg EC Tab PO SCH (08:41)
[2017-08-07] MEDS: Insulin Lispro 1 UNITS/0.01 ML SC SCH ×3 (08:43→16:57)
[2017-08-07 09:00] LABS: ALB/GLOB RATIO 0.8 (1.1-1.8); ALBUMIN 3.8 g/dL (3.0-4.8); ALT/SGPT 104 U/L (7-56); AST/SGOT 140 U/L (14-36); BLOOD UREA NITROGEN 16 mg/dL (7-21); CALCIUM 9.5 mg/dL (8.4-10.5); GFR AFRICAN-AMERICAN > 60; GFR NON-AFRICAN AMERICAN > 60
[2017-08-07 11:03] LABS: HEPATITIS C ANTIBODY REACTIVE (NEGATIVE)
--- NOTE | 2017-08-07 12:23 | CP.PCM.PN ---
<Donna Esquivel - Last Filed: 08/07/17 13:05> Subjective - Date & Time of Evaluation Date of Evaluation: 08/07/17 Time of Evaluation: 12:22 - Subjective Subjective: Internal Medicine Progress Note: Patient seen and examined at bedside. Per nursing no acute events overnight. Patient is doing well, offers no complaints at this time. States blurry vision has improved. Denies headaches, dizziness, cp, palpitations, sob, abdominal pain , urinary symptoms, changes in bowel habits. Objective - Vital Signs/Intake and Output Vital Signs (last 24 hours): Temp Pulse Resp BP Pulse Ox 98.2 F 80 18 125/81 99 08/07/17 08:29 08/07/17 09:46 08/07/17 08:29 08/07/17 09:46 08/07/17 08:29 - Medications Medications: Current Medications Heparin Sodium (Porcine) (Heparin) 5,000 units SC Q8 [facility] PRN Reason: Protocol Last Admin: 08/07/17 05:19 Dose: 5,000 units Hydralazine HCl (Apresoline) 10 mg IVP Q6 PRN PRN Reason: Other Last Admin: 08/04/17 16:53 Dose: 10 mg Potassium Chloride 20 meq/ (Sodium Chloride) 1,010 mls @ 100 mls/hr IV .Q10H6M [facility] Last Admin: 08/07/17 00:43 Dose: 100 mls/hr Insulin Detemir (Levemir) 30 unit SC HS [facility] Last Admin: 08/06/17 22:19 Dose: 30 unit Insulin Human Lispro (Humalog Low) 0 units SC ACHS [facility] PRN Reason: Protocol Last Admin: 08/07/17 11:31 Dose: Not Given Insulin Human Lispro (Humalog) 14 units SC AC [facility] Last Admin: 08/07/17 08:43 Dose: 14 units Lisinopril (Zestril) 20 mg PO DAILY [facility] Last Admin: 08/07/17 09:46 Dose: 20 mg Pantoprazole Sodium (Protonix Ec Tab) 40 mg PO ACB [facility] Last Admin: 08/07/17 08:41 Dose: 40 mg - Labs Labs: 08/07/17 08:22 08/07/17 08:22 PT 13.5 SECONDS (9.4-12.5) H 08/02/17 19:20 INR 1.18 (0.93-1.08) H 08/02/17 19:20 APTT 26.9 Seconds (25.1-36.5) 08/02/17 19:20 - Additional Findings Additional findings: - Constitutional Appears: Well, No Acute Distress - Head Exam Head Exam: ATRAUMATIC, NORMAL INSPECTION, NORMOCEPHALIC - Eye Exam Eye Exam: EOMI, Normal appearance Pupil Exam: NORMAL ACCOMODATION - ENT Exam ENT Exam: Mucous Membranes Moist - Neck Exam Neck Exam: Full ROM - Respiratory Exam Respiratory Exam: Clear to Ausculation Bilateral, NORMAL BREATHING PATTERN. absent: Rales, Rhonchi, Wheezes - Cardiovascular Exam Cardiovascular Exam: REGULAR RHYTHM, +S1, +S2 - GI/Abdominal Exam GI & Abdominal Exam: Soft, Normal Bowel Sounds. absent: Guarding, Rigid, Tenderness - Extremities Exam Extremities Exam: Normal Inspection - Back Exam Back Exam: NORMAL INSPECTION - Neurological Exam Neurological Exam: Alert, Awake, Oriented x3 - Psychiatric Exam Psychiatric exam: Normal Affect, Normal Mood - Skin Skin Exam: Dry, Normal Color, Warm Assessment and Plan - Assessment and Plan (Free Text) Assessment: 56 year old female with past medical history of HTN who was admitted to ICU for DKA management. Patient newly dx DM2 with HgA1c of 12. Patient started on insulin regiment with titration ongoing. Patient now on med/surg floors. Plan: Newly diagnosed DM2 with DKA - Etiology for DKA: infectious process vs. dehydration - HgA1c 12 on admission - Procal low, chest xray no active disease, UA clean - Patient was placed on insulin gtt, transitioned to subq - Was seen by Haulage Engine Operator (Silvia Spangler) on Saturday 08/05 - Continue Levemir 30 QHS - Humalog 14 units ACHS - ISS high, Accuchecks ACHS - Endocrine consult placed to Dr Macedo, help is appreciated - Endocrine is recommending 1 day day for insulin titration - Can likely discharge home tomorrow - Patient instructed no outside food allowed HTN - Chronic in nature, essential - Unable to recall home medication - Lisinopril 20mg Daily - Hydralazine prn - continue to monitor Elevated LFTs/Hepatitis C - LFTs were normal on admission, currently trending up AST/ALT 130/96 - Patient on Lipitor 40mg PO HS - We discontinued Lipitor as elevation in LFTs is likely medication induced - Hepatitis C is reactive, Hep C viral load is pending - Patient has known history of Hep C, untreated - We recommend outpatient abdominal US to evaluate for any liver pathology - Patient to follow up outpatient with GI for further workup and treatment Hypertriglyceridemia - Triglycerides 254 - LDL cholesterol 100 - Will discontinue Lipitor 40mg PO HS - Recommending Diet modification and exercise, recheck Lipid panel in 6 months DVT ppx: Heparin GI ppx: Protonix Plan discussed with Dr Coronel <Cameron Coronel - Last Filed: 08/07/17 14:19> Objective - Vital Signs/Intake and Output Vital Signs (last 24 hours): Temp Pulse Resp BP Pulse Ox 98.2 F 80 18 125/81 99 08/07/17 08:29 08/07/17 09:46 08/07/17 08:29 08/07/17 09:46 08/07/17 08:29 - Medications Medications: Current Medications Heparin Sodium (Porcine) (Heparin) 5,000 units SC Q8 [facility] PRN Reason: Protocol Last Admin: 08/07/17 05:19 Dose: 5,000 units Hydralazine HCl (Apresoline) 10 mg IVP Q6 PRN PRN Reason: Other Last Admin: 08/04/17 16:53 Dose: 10 mg Potassium Chloride 20 meq/ (Sodium Chloride) 1,010 mls @ 100 mls/hr IV .Q10H6M [facility] Last Admin: 08/07/17 00:43 Dose: 100 mls/hr Insulin Detemir (Levemir) 40 unit SC HS [facility] Insulin Human Lispro (Humalog Low) 0 units SC ACHS [facility] PRN Reason: Protocol Last Admin: 08/07/17 11:31 Dose: Not Given Insulin Human Lispro (Humalog) 16 units SC AC [facility] Lisinopril (Zestril) 20 mg PO DAILY [facility] Last Admin: 08/07/17 09:46 Dose: 20 mg Pantoprazole Sodium (Protonix Ec Tab) 40 mg PO ACB [facility] Last Admin: 08/07/17 08:41 Dose: 40 mg - Labs Labs: 08/07/17 08:22 08/07/17 08:22 PT 13.5 SECONDS (9.4-12.5) H 08/02/17 19:20 INR 1.18 (0.93-1.08) H 08/02/17 19:20 APTT 26.9 Seconds (25.1-36.5) 08/02/17 19:20 Attending/Attestation - Attestation I have personally seen and examined this patient.: Yes I have fully participated in the care of the patient.: Yes I have reviewed all pertinent clinical information, including history, physical exam and plan: Yes Notes (Text): I have seen and examined the patient at bedside. Agree with the above note with the following additions/ exceptions: Briefly this is 56 year old female with history of HTN who was admitted with new onset DM. DKA has responded well to IV hydration and insulin infusion. Anion gap has resolved. Patient is off insulin drip. Hemoglobin A1C is 12. Endocrinology consult appreciated. She continues to have fluctuating levels of blood glucose. Advised by food management aide to continue inpatient monitoring for 1 more day. Patient still does not feel comfortable giving herself insulin injection. Will continue teaching. Management plan was discussed in detail with patient. Education was provided. Upon discharge patient will follow up with Dr Pederson.
--- NOTE | 2017-08-07 14:52 | PN ---
DATE: 08/07/2017 ENDOCRINOLOGY FOLLOWUP NOTE LOCATION: Room 374. SUBJECTIVE: This is a 56-year-old female with recent uncontrolled type 2 insulin-requiring diabetes of recent onset and diagnosis, presenting here with marked hyperglycemic accelerations and dehydration and is now being followed closely for metabolic management. The patient received vigorous IV hydration and intensive insulin therapy as noted. Her glycemic levels are fluctuating as expected because of the marked glucose toxicity and underlying increased insulin resistance thereof. Her glucose levels have ranged today from 286-326 mg/dL. It was 311 at bedtime last night. The latest chemistry showed a BUN of 16, sodium 139, potassium 4.5, chloride 105, CO2 of 24, glucose 334, and creatinine 0.7. ASSESSMENT: This is a 56-year-old female with uncontrolled and decompensated type 2 insulin-requiring diabetes, presenting here with diabetic ketoacidosis and dehydration and is now being followed closely for metabolic management. PLAN OF MANAGEMENT: As discussed with the patient lengthily at bedside, the imperative need for the initiation and continuation of insulin therapy cannot be overemphasized. We will titrate Levemir to a higher dose of 40 units subcu at bedtime daily to start tonight. We will also continue Humalog given at a higher dose of 16 units subcu t.i.d. before meals to start at dinner time today as ordered. Will continue the modified lower coverage scale using Humalog insulin as given. We will obtain serial chemistries and supplement accordingly as needed. We will follow. Maite Macedo MD
[2017-08-07 18:33] VITALS: RESP 20
[2017-08-07] MEDS ORDERED: Insulin Detemir 100 units/ml Vial (Levemir) SC SCH (22:00)
[2017-08-08] MEDS: Potassium Chloride 20 MEQ in Sodium Chloride 0.45% 1,000 ML IV SCH (05:29)
[2017-08-08 07:37] LABS: BASO # 0.03 K/mm3 (0.0-2.0); BASO % 0.6 % (0.0-3.0); EOS % 0.8 % (1.5-5.0); GRAN # 1.09 (1.4-6.5); GRAN % 21.4 % (50.0-68.0); HEMOGLOBIN 11.5 g/dL (12.0-16.0); LYMPH # 3.2 (1.2-3.4); LYMPH % 62.8 % (22.0-35.0); MEAN CELL VOLUME 89.2 fl (80.0-105.0); MEAN CORPUSCULAR HEMOGLOBIN 30.2 pg (25.0-35.0); MEAN CORPUSCULAR HGB CONC 33.8 g/dl (31.0-37.0); MEAN PLATELET VOLUME 10.8 fl (7.0-11.0); MONO # 0.7 (0.1-0.6); MONO % 14.4 % (1.0-6.0); RBC 3.81 10^6/uL (3.5-6.1); WHITE BLOOD COUNT 5.1 10^3/ul (4.5-11.0)
[2017-08-08 07:54] LABS: ALB/GLOB RATIO 0.8 (1.1-1.8); ALBUMIN 3.7 g/dL (3.0-4.8); ALT/SGPT 125 U/L (7-56); AST/SGOT 150 U/L (14-36); BLOOD UREA NITROGEN 14 mg/dL (7-21); CALCIUM 9.4 mg/dL (8.4-10.5); GFR AFRICAN-AMERICAN > 60; GFR NON-AFRICAN AMERICAN > 60
[2017-08-08] MEDS: Insulin Lispro (humaLOG) LOW Coverage SC SCH ×2 (07:57→11:42)
[2017-08-08 08:12] VITALS: BP 140/91; PULSE 87; TEMP 97.9; O2SAT 97
[2017-08-08] MEDS: Pantoprazole 40 mg EC Tab PO SCH (08:38)
[2017-08-08] MEDS: Insulin Lispro 1 UNITS/0.01 ML SC SCH ×2 (08:38→13:09)
--- NOTE | 2017-08-08 12:09 | CP.PCM.DIS ---
<GabrielgraceChang - Last Filed: 08/08/17 12:23> Provider - Provider Date of Admission: 08/02/17 20:46 Attending physician: Cameron Coronel MD Primary care physician: Hilda Pederson MD Consults: Endo: Cam Time Spent in preparation of Discharge (in minutes): 45 Hospital Course - Lab Results Lab Results: Micro Results 08/03/17 01:30 Blood Blood Culture - Final NO GROWTH AFTER 5 DAYS 08/03/17 01:30 Blood Gram Stain - Final TEST NOT PERFORMED 08/03/17 01:15 Naris MRSA Culture (Admit) - Final MRSA NOT DETECTED Most Recent Lab Values WBC 5.1 10^3/ul (4.5-11.0) 08/08/17 07:00 RBC 3.81 10^6/uL (3.5-6.1) 08/08/17 07:00 Hgb 11.5 g/dL (12.0-16.0) L 08/08/17 07:00 Hct 34.0 % (36.0-48.0) L 08/08/17 07:00 MCV 89.2 fl (80.0-105.0) 08/08/17 07:00 MCH 30.2 pg (25.0-35.0) 08/08/17 07:00 MCHC 33.8 g/dl (31.0-37.0) 08/08/17 07:00 RDW 13.0 % (11.5-14.5) 08/08/17 07:00 Plt Count 246 10^3/uL (120.0-450.0) 08/08/17 07:00 MPV 10.8 fl (7.0-11.0) 08/08/17 07:00 Gran % 21.4 % (50.0-68.0) L 08/08/17 07:00 Lymph % (Auto) 62.8 % (22.0-35.0) H 08/08/17 07:00 [place] % (Auto) 14.4 % (1.0-6.0) H 08/08/17 07:00 Eos % (Auto) 0.8 % (1.5-5.0) L 08/08/17 07:00 Baso % (Auto) 0.6 % (0.0-3.0) 08/08/17 07:00 Gran # 1.09 (1.4-6.5) L 08/08/17 07:00 Lymph # (Auto) 3.2 (1.2-3.4) 08/08/17 07:00 [place] # (Auto) 0.7 (0.1-0.6) H 08/08/17 07:00 Eos # (Auto) 0.0 (0.0-0.7) 08/08/17 07:00 Baso # (Auto) 0.03 K/mm3 (0.0-2.0) 08/08/17 07:00 PT 13.5 SECONDS (9.4-12.5) H 08/02/17 19:20 INR 1.18 (0.93-1.08) H 08/02/17 19:20 APTT 26.9 Seconds (25.1-36.5) 08/02/17 19:20 Sodium 139 mmol/L (132-148) 08/08/17 07:00 Potassium 4.2 mmol/L (3.6-5.0) 08/08/17 07:00 Chloride 106 mmol/L (98-107) 08/08/17 07:00 Carbon Dioxide 25 mmol/L (21-33) 08/08/17 07:00 Anion Gap 13 (10-20) 08/08/17 07:00 BUN 14 mg/dL (7-21) 08/08/17 07:00 Creatinine 0.7 mg/dl (0.7-1.2) 08/08/17 07:00 Est GFR ( Amer) > 60 08/08/17 07:00 Est GFR (Non-Af Amer) > 60 08/08/17 07:00 POC Glucose (mg/dL) 131 mg/dL (65-110) H 08/08/17 11:31 Random Glucose 362 mg/dL (70-110) H* 08/08/17 07:00 Hemoglobin A1c 12.2 % (4.2-6.5) H 08/03/17 06:30 Calcium 9.4 mg/dL (8.4-10.5) 08/08/17 07:00 Phosphorus 3.4 mg/dL (2.5-4.5) 08/06/17 09:45 Magnesium 1.7 mg/dL (1.7-2.2) 08/06/17 09:45 Total Bilirubin 0.3 mg/dL (0.2-1.3) 08/08/17 07:00 AST 150 U/L (14-36) H 08/08/17 07:00 ALT 125 U/L (7-56) H 08/08/17 07:00 Alkaline Phosphatase 79 U/L (38-126) 08/08/17 07:00 Lactate Dehydrogenase 666 U/L (333-699) 08/02/17 19:20 Total Creatine Kinase 383 U/L (35-230) H 08/02/17 19:20 CK-MB (CK-2) 19.7 ng/mL (0.0-3.6) H 08/02/17 19:20 CK-MB (CK-2) % 5.1 % (2.5-3.0) H 08/02/17 19:20 Troponin I 0.12 ng/mL 08/03/17 06:30 Total Protein 8.2 g/dL (5.8-8.3) 08/08/17 07:00 Albumin 3.7 g/dL (3.0-4.8) 08/08/17 07:00 Globulin 4.5 gm/dL 08/08/17 07:00 Albumin/Globulin Ratio 0.8 (1.1-1.8) L 08/08/17 07:00 Triglycerides 275 mg/dL (35-160) H 08/03/17 01:30 Cholesterol 197 mg/dL (130-200) 08/03/17 01:30 LDL Cholesterol Direct 100 mg/dL (0-129) 08/03/17 01:30 HDL Cholesterol 42 mg/dL (29-60) 08/03/17 01:30 Amylase 95 U/L (35-125) 08/02/17 19:20 Lipase 162 U/L (23-300) 08/02/17 19:20 Procalcitonin 0.06 NG/ML (0.19-0.49) L 08/03/17 01:30 TSH 3rd Generation 1.45 mIU/mL (0.46-4.68) 08/03/17 01:30 Urine Color yellow (YELLOW) 08/02/17 19:07 Urine Appearance Clear (CLEAR) 08/02/17 19:07 Urine pH 6.5 (4.7-8.0) 08/02/17 19:07 Ur Specific [place] 1.010 (1.005-1.035) 08/02/17 19:07 Urine Protein 30 mg/dL (<30 mg/dL) H 08/02/17 19:07 Urine Glucose (UA) >=1000 mg/dL (NEGATIVE) 08/02/17 19:07 Urine Ketones 40 mg/dL (NEGATIVE) H 08/02/17 19:07 Urine Blood Moderate (NEGATIVE) H 08/02/17 19:07 Urine Nitrate Negative (NEGATIVE) 08/02/17 19:07 Urine Bilirubin Negative (NEGATIVE) 08/02/17 19:07 Urine Urobilinogen 0.2 E.U./dL (<1 E.U./dL) 08/02/17 19:07 Ur Leukocyte Esterase Negative Curtis/uL (NEGATIVE) 08/02/17 19:07 Urine RBC 25 - 30 /hpf (0-2) 08/02/17 19:07 Urine WBC 1 - 3 /hpf (0-6) 08/02/17 19:07 Ur Epithelial Cells 4 - 5 /hpf (0-5) 08/02/17 19:07 Urine Bacteria Trace (NEG) 08/02/17 19:07 Urine Opiates Screen Negative (NEGATIVE) 08/03/17 09:50 Urine Methadone Screen Negative (NEGATIVE) 08/03/17 09:50 Ur Barbiturates Screen Negative (NEGATIVE) 08/03/17 09:50 Ur Phencyclidine Scrn Negative (NEGATIVE) 08/03/17 09:50 Ur Amphetamines Screen Negative (NEGATIVE) 08/03/17 09:50 U Benzodiazepines Scrn Negative (NEGATIVE) 08/03/17 09:50 U Oth Cocaine Metabols Negative (NEGATIVE) 08/03/17 09:50 U Cannabinoids Screen Positive (NEGATIVE) H 08/03/17 09:50 Hepatitis A IgM Ab Negative (NEGATIVE) 08/06/17 10:45 Hep Bs Antigen Negative (NEGATIVE) 08/06/17 10:45 Hep B Core IgM Ab Negative (NEGATIVE) 08/06/17 10:45 Hepatitis C Antibody Reactive (NEGATIVE) 08/06/17 10:45 - Hospital Course Hospital Course: 56 F with PMHx of HTN presents to the ED with abdominal pain, decrease appetite , and polydipsia. Patient states that for the past 11 days she has been feeling progressively tired. Than she started to develop some generalized abdominal pain following meals that is 10/10 in severity therefore loosing her appetite. Patient also states that she has been feeling very thirsty recently and urinating often. She states that she goes to her PMD monthly and has been relatively healthy. She denies this ever occurring before. No other complaints. Patient came in with DKA. Went to ICU. IV insulin. Gap closed overnight. Was transferred to the floor. Sugar remained consistently high. Patient was seen by box worker and Dr. Macedo. Was started on basal dose insulin as well as ACHS insulin. Continued to increase insulin doses to better control sugar. Was still having episodes of Hyperglycemia but to a lesser degree. Patient was taught what to eat as well has how to inject insulin. Was discharged with instructions to follow up with Dr. Macedo as outpatient. Discharge Exam - Head Exam Head Exam: ATRAUMATIC, NORMAL INSPECTION, NORMOCEPHALIC - Eye Exam Eye Exam: EOMI, Normal appearance, PERRL Pupil Exam: NORMAL ACCOMODATION, PERRL - Respiratory Exam Respiratory Exam: Clear to PA & Lateral, UNREMARKABLE - Cardiovascular Exam Cardiovascular Exam: REGULAR RHYTHM. absent: Tachycardia - GI/Abdominal Exam GI & Abdominal Exam: Normal Bowel Sounds. absent: Distended, Tenderness - Neurological Exam Neurological exam: Alert, CN II-XII Intact, Normal Gait, Oriented x3, Reflexes Normal - Psychiatric Exam Psychiatric exam: Normal Affect, Normal Mood - Skin Skin Exam: Dry, Intact, Normal Color, Warm Discharge Plan - Discharge Medications Prescriptions: Insulin Detemir [Levemir] 40 unit SC HS 30 Days unit Insulin Lispro [humALOG] 16 units SC AC 30 Days ml Lisinopril [Zestril] 20 mg PO DAILY #30 tab - Follow Up Plan Condition: FAIR Disposition: HOME/ ROUTINE Instructions: Insulin Injection, Low Blood Sugar, Adult (DC), Blood Glucose Monitoring, Using Insulin, Diabetes and Diet, Diabetic Ketoacidosis (DC), Diabetic Ketoacidosis (GEN) Additional Instructions: Follow up outpatient with your Primary care physician within 3 to 5 days of discharge Follow up outpatient with char dust cleaner and salvager for initial screening and then annually for routine eye exam Follow up with Dr. Macedo in her office when you leave the hospital. I have attached her office information. Please call to make and appointment. The office number is [phone] Take medications as prescribed to you Maintain a carb consistent diet Return to nearest ED if you begin to feel chest pain, persistent fever, headache , vomiting or diarrhea Referrals: Maite Macedo MD [Medical Doctor] - Hilda Pederson MD [Primary Care Provider] - <Cameron Coronel - Last Filed: 08/08/17 14:33> Provider - Provider Date of Admission: 08/02/17 20:46 Attending physician: Cameron Coronel MD Primary care physician: Hilda Pederson MD Hospital Course - Lab Results Lab Results: Micro Results 08/03/17 01:30 Blood Blood Culture - Final NO GROWTH AFTER 5 DAYS 08/03/17 01:30 Blood Gram Stain - Final TEST NOT PERFORMED 08/03/17 01:15 Naris MRSA Culture (Admit) - Final MRSA NOT DETECTED Most Recent Lab Values WBC 5.1 10^3/ul (4.5-11.0) 08/08/17 07:00 RBC 3.81 10^6/uL (3.5-6.1) 08/08/17 07:00 Hgb 11.5 g/dL (12.0-16.0) L 08/08/17 07:00 Hct 34.0 % (36.0-48.0) L 08/08/17 07:00 MCV 89.2 fl (80.0-105.0) 08/08/17 07:00 MCH 30.2 pg (25.0-35.0) 08/08/17 07:00 MCHC 33.8 g/dl (31.0-37.0) 08/08/17 07:00 RDW 13.0 % (11.5-14.5) 08/08/17 07:00 Plt Count 246 10^3/uL (120.0-450.0) 08/08/17 07:00 MPV 10.8 fl (7.0-11.0) 08/08/17 07:00 Gran % 21.4 % (50.0-68.0) L 08/08/17 07:00 Lymph % (Auto) 62.8 % (22.0-35.0) H 08/08/17 07:00 [place] % (Auto) 14.4 % (1.0-6.0) H 08/08/17 07:00 Eos % (Auto) 0.8 % (1.5-5.0) L 08/08/17 07:00 Baso % (Auto) 0.6 % (0.0-3.0) 08/08/17 07:00 Gran # 1.09 (1.4-6.5) L 08/08/17 07:00 Lymph # (Auto) 3.2 (1.2-3.4) 08/08/17 07:00 [place] # (Auto) 0.7 (0.1-0.6) H 08/08/17 07:00 Eos # (Auto) 0.0 (0.0-0.7) 08/08/17 07:00 Baso # (Auto) 0.03 K/mm3 (0.0-2.0) 08/08/17 07:00 PT 13.5 SECONDS (9.4-12.5) H 08/02/17 19:20 INR 1.18 (0.93-1.08) H 08/02/17 19:20 APTT 26.9 Seconds (25.1-36.5) 08/02/17 19:20 Sodium 139 mmol/L (132-148) 08/08/17 07:00 Potassium 4.2 mmol/L (3.6-5.0) 08/08/17 07:00 Chloride 106 mmol/L (98-107) 08/08/17 07:00 Carbon Dioxide 25 mmol/L (21-33) 08/08/17 07:00 Anion Gap 13 (10-20) 08/08/17 07:00 BUN 14 mg/dL (7-21) 08/08/17 07:00 Creatinine 0.7 mg/dl (0.7-1.2) 08/08/17 07:00 Est GFR ( Amer) > 60 08/08/17 07:00 Est GFR (Non-Af Amer) > 60 08/08/17 07:00 POC Glucose (mg/dL) 131 mg/dL (65-110) H 08/08/17 11:31 Random Glucose 362 mg/dL (70-110) H* 08/08/17 07:00 Hemoglobin A1c 12.2 % (4.2-6.5) H 08/03/17 06:30 Calcium 9.4 mg/dL (8.4-10.5) 08/08/17 07:00 Phosphorus 3.4 mg/dL (2.5-4.5) 08/06/17 09:45 Magnesium 1.7 mg/dL (1.7-2.2) 08/06/17 09:45 Total Bilirubin 0.3 mg/dL (0.2-1.3) 08/08/17 07:00 AST 150 U/L (14-36) H 08/08/17 07:00 ALT 125 U/L (7-56) H 08/08/17 07:00 Alkaline Phosphatase 79 U/L (38-126) 08/08/17 07:00 Lactate Dehydrogenase 666 U/L (333-699) 08/02/17 19:20 Total Creatine Kinase 383 U/L (35-230) H 08/02/17 19:20 CK-MB (CK-2) 19.7 ng/mL (0.0-3.6) H 08/02/17 19:20 CK-MB (CK-2) % 5.1 % (2.5-3.0) H 08/02/17 19:20 Troponin I 0.12 ng/mL 08/03/17 06:30 Total Protein 8.2 g/dL (5.8-8.3) 08/08/17 07:00 Albumin 3.7 g/dL (3.0-4.8) 08/08/17 07:00 Globulin 4.5 gm/dL 08/08/17 07:00 Albumin/Globulin Ratio 0.8 (1.1-1.8) L 08/08/17 07:00 Triglycerides 275 mg/dL (35-160) H 08/03/17 01:30 Cholesterol 197 mg/dL (130-200) 08/03/17 01:30 LDL Cholesterol Direct 100 mg/dL (0-129) 08/03/17 01:30 HDL Cholesterol 42 mg/dL (29-60) 08/03/17 01:30 Amylase 95 U/L (35-125) 08/02/17 19:20 Lipase 162 U/L (23-300) 08/02/17 19:20 25-OH Vitamin D Total < 12.8 NG/ML (30.0-100.0) L 08/08/17 07:00 Procalcitonin 0.06 NG/ML (0.19-0.49) L 08/03/17 01:30 TSH 3rd Generation 1.45 mIU/mL (0.46-4.68) 08/03/17 01:30 Urine Color yellow (YELLOW) 08/02/17 19:07 Urine Appearance Clear (CLEAR) 08/02/17 19:07 Urine pH 6.5 (4.7-8.0) 08/02/17 19:07 Ur Specific [place] 1.010 (1.005-1.035) 08/02/17 19:07 Urine Protein 30 mg/dL (<30 mg/dL) H 08/02/17 19:07 Urine Glucose (UA) >=1000 mg/dL (NEGATIVE) 08/02/17 19:07 Urine Ketones 40 mg/dL (NEGATIVE) H 08/02/17 19:07 Urine Blood Moderate (NEGATIVE) H 08/02/17 19:07 Urine Nitrate Negative (NEGATIVE) 08/02/17 19:07 Urine Bilirubin Negative (NEGATIVE) 08/02/17 19:07 Urine Urobilinogen 0.2 E.U./dL (<1 E.U./dL) 08/02/17 19:07 Ur Leukocyte Esterase Negative Curtis/uL (NEGATIVE) 08/02/17 19:07 Urine RBC 25 - 30 /hpf (0-2) 08/02/17 19:07 Urine WBC 1 - 3 /hpf (0-6) 08/02/17 19:07 Ur Epithelial Cells 4 - 5 /hpf (0-5) 08/02/17 19:07 Urine Bacteria Trace (NEG) 08/02/17 19:07 Urine Opiates Screen Negative (NEGATIVE) 08/03/17 09:50 Urine Methadone Screen Negative (NEGATIVE) 08/03/17 09:50 Ur Barbiturates Screen Negative (NEGATIVE) 08/03/17 09:50 Ur Phencyclidine Scrn Negative (NEGATIVE) 08/03/17 09:50 Ur Amphetamines Screen Negative (NEGATIVE) 08/03/17 09:50 U Benzodiazepines Scrn Negative (NEGATIVE) 08/03/17 09:50 U Oth Cocaine Metabols Negative (NEGATIVE) 08/03/17 09:50 U Cannabinoids Screen Positive (NEGATIVE) H 08/03/17 09:50 Hepatitis A IgM Ab Negative (NEGATIVE) 08/06/17 10:45 Hep Bs Antigen Negative (NEGATIVE) 08/06/17 10:45 Hep B Core IgM Ab Negative (NEGATIVE) 08/06/17 10:45 Hepatitis C Antibody Reactive (NEGATIVE) 08/06/17 10:45 Attending/Attestation - Attestation I have personally seen and examined this patient.: Yes I have fully participated in the care of the patient.: Yes I have reviewed all pertinent clinical information, including history, physical exam and plan: Yes Notes (Text): I have seen and examined the patient at bedside. Agree with the above note with the following additions/ exceptions: Briefly this is 56 year old female with history of HTN who was admitted with new onset DM. DKA has responded well to IV hydration and insulin infusion. Anion gap has resolved. Patient is off insulin drip. Hemoglobin A1C is 12. Endocrinology consult appreciated. She had fluctuating levels of blood glucose which has improved somewhat. Patient feels comfortable giving herself insulin injection. Management plan was discussed in detail with patient. Education was provided. Upon discharge patient will follow up with Dr Pederson. Also advised the patient to follow up with copy room technician.
--- NOTE | 2017-08-08 19:47 | PN ---
DATE: 08/08/2017 ENDOCRINOLOGY FOLLOWUP NOTE LOCATION: Room 374. SUBJECTIVE: This is a 56-year-old female with recently diagnosed uncontrolled type 2 insulin-requiring diabetes, presenting here with hyperosmolar hyperglycemic state and dehydration with supervening diabetic ketoacidosis and is now being followed closely for metabolic management. Her glycemic levels are fluctuating but much improved at this time and the latest glucose levels have ranged from 131-314 mg/dL. Her latest chemistry showed a BUN of 14, sodium 139, potassium 4.2, chloride 106, CO2 of 25, glucose 362, and creatinine 0.7. Her bedtime glucose was 377 last night and it was 349 at 2:00 this morning as noted. So, at this time, we will titrate her basal insulin to a higher dose of Levemir given as 50 units subcu at bedtime daily as ordered. We will continue the Humalog given at 16 units subcu t.i.d. before meals as ordered. We will titrate incrementally as indicated to optimize metabolic control. We will obtain serial chemistries and supplement accordingly as needed. We will follow. Maite Macedo MD
[2017-08-08] MEDS ORDERED: Insulin Detemir 100 units/ml Vial (Levemir) SC SCH (22:00)
[2017-08-09 14:00] LABS: C-PEPTIDE 0.55 ng/mL (0.80-3.85)
== END 2017-08-08 15:55 | disposition home or self-care (01) | DRG 294 ==
LOC: ED 18:07 → ERH 20:46 → CCU 08-03 01:04 → 3RSO 08-03 16:44
PROVIDERS: ADMIT Internal Medicine; ATTEND Hospitalist
DX: E11.00 Type 2 diabetes mellitus with hyperosmolarity without nonketotic hyperglycemic-hyperosmolar coma (NKHHC) (principal); E86.0 Dehydration; E87.6 Hypokalemia; F14.90 Cocaine use, unspecified, uncomplicated; E11.10 Type 2 diabetes mellitus with ketoacidosis without coma; E78.5 Hyperlipidemia, unspecified; F17.210 Nicotine dependence, cigarettes, uncomplicated; I10 Essential (primary) hypertension; J45.909 Unspecified asthma, uncomplicated; Z79.4 Long term (current) use of insulin